=== PATIENT | female | born 1935 | race Caucasian/White ===

== ENCOUNTER 2019-04-16 10:48 | Inpatient (IN) ==
[2019-04-16] MEDS ORDERED: ASPIRIN PO ONE (11:21)
[2019-04-16] MEDS ORDERED: NITROGLYCERIN TOP ONE (11:23)
[2019-04-16] MEDS ORDERED: MORPHINE IV ONE (11:23)
[2019-04-16] MEDS ORDERED: ZOFRAN ODT PO ONE (11:23)
--- NOTE | 2019-04-16 11:44 | Diag Imaging Result Doc PS360 ---
CHEST-2 VIEWS - 04/16/2019 INDICATION: CP COMPARISON: 02/20/2016 FINDINGS: There is cardiomegaly and pulmonary vascular congestion. There are some hazy ill-defined infiltrates in the lung bases bilaterally, nonspecific but likely to be pulmonary edema. There are trace bilateral pleural effusions. IMPRESSION: Cardiomegaly, interstitial pulmonary edema, trace pleural effusions. Electronically signed by Adrián Dudley 04/16/2019 11:41 AM
[2019-04-16] MEDS ORDERED: VASOTEC IV ONE (11:51)
[2019-04-16 12:07] LABS: BASO# 0.04 X1000 (0.0-0.2); BASO% 0.2 % (0.0-0.8); EOS# 0.07 X1000 (0.0-0.7); EOS% 0.4 % (0.0-10.0); HEMOGLOBIN 13.6 g/dL (12.0-16.0); LYMPH# 2.56 X1000 (1.2-3.4); LYMPH% 14.1 % (20.5-51.1); MCH 29.5 PG (27-31); MCHC 31.6 g/dL (33-37); MCV 93.3 FL (81-99); MONO# 2.08 X1000 (0.11-0.59); MONO% 11.5 % (1.7-9.3); NEUT# 13.37 X1000 (1.4-6.5); NEUT% 73.8 % (42.2-75.2); PLT 191 X1000 (130-400); RBC 4.61 XMIL (4.2-5.4); RDW 14.3 % (11.5-14.5); WBC 18.12 X1000 (4.8-10.8)
[2019-04-16 12:12] LABS: INR 0.95; PROTIME 12.7 Seconds (11.0-16.0)
[2019-04-16 12:13] LABS: PTT 24.8 Seconds (22.3-41.8)
[2019-04-16 12:21] LABS: ALB/GLOB RATIO 1.4; ALBUMIN 3.7 g/dL (3.5-5.0); CALCIUM 9.6 mg/dL (8.8-10.2); CREATININE 1.3 mg/dL (0.5-0.9); POTASSIUM 4.4 mmol/L (3.5-5.1); TOTAL BILIRUBIN 0.22 mg/dL (0.20-1.00); TOTAL PROTEIN 6.4 g/dL (6.3-8.3)
[2019-04-16 12:27] LABS: URINE SOURCE CLEAN CATCH
[2019-04-16 12:30] LABS: BILIRUBIN URINE NEGATIVE (NEGATIVE); BLOOD URINE NEGATIVE (NEGATIVE); COLOR YELLOW; GLUCOSE URINE 200 mg/dL (NEGATIVE); KETONE URINE NEGATIVE (NEGATIVE); LEUKOCYTES URINE NEGATIVE (NEGATIVE); NITRITE URINE NEGATIVE (NEGATIVE); PROTEIN URINE >600 mg/dL (NEGATIVE); SP GRAVITY URINE 1.013; TURBIDITY URINE CLEAR (CLEAR); UROBILINOGEN URINE NORMAL (NORMAL)
[2019-04-16 12:31] LABS: UR EPITHELIAL CELLS <10 /HPF (<10); URINE BACTERIA 1+ /HPF; URINE RBC <10 /HPF (<10)
--- NOTE | 2019-04-16 12:52 | EKG Report ---
Test Performed on : 04/16/2019 11:08:52 AM Test Reason : CP Blood Pressure : / mmHG Vent. Rate : 089 BPM Atrial Rate : 089 BPM P-R Int : 200 ms QRS Dur : 096 ms QT Int : 436 ms P-R-T Axes : 087 -18 123 degrees QTc Int : 530 ms Sinus rhythm. with occasional premature ventricular complexes. Left ventricular hypertrophy with repolarization abnormality Anteroseptal infarct (cited on or before 05-SEP-2014) Prolonged QT Abnormal ECG When compared with ECG of 17-MAY-2015 10:56, premature ventricular complexes. are now present Questionable change in initial forces of Anterior leads T wave inversion more evident in Lateral leads Unconfirmed Result
[2019-04-16] MEDS ORDERED: LASIX IV ONE (13:34)
[2019-04-16] MEDS ORDERED: MERREM 1 GM in NS 50 ML IV ONE (13:36)
--- NOTE | 2019-04-16 13:44 | PROVIDER DOCUMENTATION ---
This chart was entered by Susana Ware Scribe, acting as scribe for Alvaro Larson MD. HPI-Respiratory General - General Chief Complaint: Shortness of Breath Stated Complaint: cp, sob x 3 days Time Seen by Provider: 04/16/19 11:05 Source: patient, family, EMS ([facility]) Allergies/Adverse Reactions: Patient Allergies Allergy/AdvReac Type Severity Reaction Status Date / Time atenolol [From Tenormin] Allergy Unknown Verified 02/16/16 08:47 atorvastatin calcium * Allergy Unknown Verified 02/16/16 08:47 [From Lipitor] clarithromycin [From Biaxin] Allergy Unknown Verified 02/16/16 08:47 diltiazem HCl * Allergy Unknown Verified 02/16/16 08:47 [From Cardizem] gabapentin [From Neurontin] Allergy Unknown Verified 02/16/16 08:47 Penicillins Allergy Unknown Verified 02/16/16 08:47 Sulfa (Sulfonamide Allergy Unknown Verified 02/16/16 08:47 Antibiotics) tetanus toxoid, adsorbed Allergy Unknown Verified 02/16/16 08:47 Home Medications: Home Medication List Medication Instructions Recorded Confirmed Last Taken Type Bumetanide 1 mg PO DAILY 09/05/14 02/16/16 02/15/16 History Duloxetine [Cymbalta] 30 mg PO DAILY 09/05/14 02/16/16 02/15/16 History Insulin Detemir [Levemir] 60 unit SQ HS 09/05/14 02/16/16 02/15/16 History Melatonin/Pyridoxine [Melatonin 3 1 each PO HS 09/05/14 02/16/16 02/15/16 H istory mg Tablet] Mineral Oil/Petrolatum,White 3.5 gm OP HS 09/05/14 02/16/16 02/15/16 History [Refresh Lacri-Lube Ointment] Montelukast Sodium [Singulair] 10 mg PO DAILY 09/05/14 02/16/16 02/15/16 History Multivit,Calc,Mins/Iron/Folic 1 each PO DAILY 09/05/14 04/16/19 04/15/19 09:00 History [Thera M Plus Tablet] 1 tab Polyethylene Glycol 3350 [Miralax] 17 gm PO DAILY 03/04/16/19 04/15/19 09:00 History 17 gm Rivastigmine [Exelon 4.6MG/24Hrs] 1 each TD DAILY 09/05/14 04/16/19 04/15/19 09:00 History 4.6 mg TD Trazodone HCl 25 mg PO HS 09/05/14 02/16/16 02/15/16 History Clonidine [Catapres] 0.1 mg PO BID 05/17/15 02/16/16 02/15/16 History Hydralazine [Apresoline] 50 mg PO 4XDAY 05/17/15 02/16/16 02/16/16 History Insulin Regular, Human [Novolin R] 0 - 10 unit SQ DIRECTED 05/17/15 02/16/16 02/15/16 History Metoprolol Succinate E.r. [Toprol 50 mg PO BID 05/17/15 02/16/16 02/15/16 History Xl] Bumetanide 0.5 mg PO DAILY 02/16/16 02/16/16 02/15/16 12:00 History Buspirone HCl 5 mg PO BID 02/16/16 02/16/16 02/15/16 History Cyclobenzaprine [Flexeril] 10 mg PO QHS 02/16/16 02/16/16 02/15/16 History Losartan Potassium 100 mg PO DAILY 02/16/16 02/16/16 02/15/16 History Polyvinyl Alcohol Eye Drops 1 drop BOTH EYES TID 02/16/16 02/16/16 02/15/16 History [Tearisol Oph Solution] Ranitidine [Zantac] 150 mg PO BID 02/16/16 02/16/16 02/15/16 History Amlodipine [Norvasc] 5 mg PO DAILY #60 tablet 02/20/16 Unknown Rx Hydrocodone/APAP 10 mg/325 mg 0.5 - 1 each PO Q4-6H PRN PRN #20 02/20/16 Unknown Rx [[place]-10] tablet Rivaroxaban [Xarelto] 10 mg PO DAILY@0600 #10 tablet 02/20/16 Unknown Rx Aspirin 325 mg PO DAILY 04/16/19 04/16/19 04/15/19 09:00 History 325 mg Furosemide 40 mg PO DAILY 04/16/19 04/16/1919 09:00 History 40 mg Levothyroxine [Synthroid] 25 microgm PO DAILY 04/16/19 04/16/19 04/16/19 05:00 History 25 mcg Linaclotide [Linzess] 72 mcg PO DAILY 04/16/19 04/16/19 04/16/19 06:00 History 72 mcg Multivitamin,Therapeutic [Thera] 1 tab PO DAILY 04/16/19 04/16/19 Unknown History Pantoprazole [Protonix] 40 mg PO DAILY 04/16/19 04/16/19 04/16/19 05:00 History 40 mg Sennosides/Docusate Sodium 2 tab PO DAILY 04/16/19 04/16/19 04/16/19 09:00 H istory [Senna-Docusate Sodium Tablet] 2 tab - History of Present Illness-Resp Nature of Presenting Problem: 84 yowf presents to the ed via ems ([facility]) with c/o SOB, CP acute onset last night. pt this morning when nurse checked on pt she had elevated BP and n/vx1. pt was sent to ed for work up. [t was treated for PNA 1.5months earlier at facility. pt on exam is nontoxic in appearance and appears to be in no distress. family is at bedside with pt and sts has had hx with hiatal hernia CHF and COPD in past Quality of Pain: reports: tightness Severity in ED: reports: mild Onset/Duration: reports: last night Timing: reports: improving, intermittent Exposure: reports: unknown cause Cough Quality/Degree: reports: no cough Episode Frequency: occasional episodes Current Respiratory Medication Therapy: Initiated see nurses note Modifying Factors: improves with: nothing Associated Symptoms: reports: chest pain/soreness, shortness of breath. denies: dizziness, fever/chills, headache, lightheadedness, wheezing Similar Symptoms Previously?: Yes Recently seen or treated by another doctor?: Yes (has seen SNF today and recently in past) Review of Systems - Adult - REVIEW OF SYSTEMS - ADULT Constitutional: denies: chills, fever Eyes: reports: no symptoms reported Ears, Nose, Mouth & Throat: reports: no symptoms reported Cardiovascular: reports: see HPI, chest pain, heart murmur. denies: palpitations, syncope Respiratory: reports: see HPI, shortness of breath. denies: cough, wheezing Gastrointestinal: reports: see HPI, abdominal pain, nausea, vomiting Genitourinary: reports: no symptoms reported Musculoskeletal: reports: no symptoms reported Integumentary: reports: no symptoms reported Neurological: denies: dizziness/vertigo, headache/migraines Psychiatric: reports: no symptoms reported Endocrine: reports: no symptoms reported Hematologic/Lymphatic: reports: no symptoms reported Allergic/Immunologic: reports: no symptoms reported All Other Systems: Reviewed and Negative Past History - Adult - PAST MEDICAL HISTORY-ADULT Review of Records: reports: Old Records Reviewed, Nursing Assessment Review, Medications Reviewed, Social history reviewed & non-contributory. Major Childhood Illnesses: reports: denies history Cardiovascular: reports: angina, CAD, HTN, murmur Respiratory: reports: COPD, pneumonia Gastrointestinal: reports: GERD, other (hernia) Obstetrical/Gynecological: reports: denies history Genitourinary: reports: denies history Musculoskeletal: reports: arthritis, chronic pain (low back pain), other (neuropathy; Macular Degeneration) Neurological: reports: dementia (mild) Endocrine/Immune: reports: Diabetes Diabetes Type: Type 2 Other Conditions: reports: denies history - PRIOR SURGERIES/PROCEDURES Surgical/Procedure History: reports: cholecystectomy, hysterectomy, orthopedic (extremity) (knee Sx), other (throat Sx) - IMMUNIZATION STATUS Childhood Immunizations: See Nurse Assessment Flu Vaccine: UTD - FAMILY HISTORY Family History: reviewed, not pertinent - SOCIAL HISTORY Smoking: non-smoker Substance Use: alcohol Alcohol Use Frequency: occasionally Number of drinks per typical drinking period:: 1 drink Living Situation: care facility ([facility]) Physical Exam-General - PHYSICAL EXAM-ADULT Initial Vital Signs Reviewed: Yes (noted BP-223/85) - CONSTITUTIONAL General Appearance: appears well, alert, mild distress, obese - EYES Eyes: PERRL/EOMI, pink conjunctivae - HEAD, EARS, NOSE, MOUTH & THROAT HENMT: moist mucous membranes - NECK Neck: non-tender, full range of motion, supple, normal inspection - RESPIRATORY Respiratory: chest non-tender, no respiratory distress, crackles (builateral at bases) - CARDIOVASCULAR Cardiovascular: normal peripheral pulses, systolic murmur, extra beats - GASTROINTESTINAL (ABDOMEN) Abdominal Exam: normal bowel sounds, soft, tenderness (RLQ with palpation), hernia - LYMPHATIC Lymphatic: no adenopathy - MUSCULOSKELETAL Back Exam: normal inspection, no CVA tenderness, no vertebral tenderness Extremity: normal inspection, normal capillary refill, pelvis stable - SKIN Integumentary: normal color, normal turgor, warm/dry - NEUROLOGIC Neurologic: grossly normal - PSYCHIATRIC Psych/Mental Status: normal mood/affect, normal thought content, normal thought process, oriented x 3 - HEART Score HEART Score: History: Slightly Suspicious HEART Score: ECG: Non-Specific Repolarization Disturbance/LBBB/PM HEART Score: Age: > or = 65 Years HEART Score: Risk Factors for Atherosclerotic Disease: 1 or 2 Risk Factors HEART Score: Troponin: < or = Normal Limit Total HEART Score:: 4 Progress - PLAN OF CARE/RESULTS Progress/Plan/Lab Results: Vital Signs - 8 hr 04/16/19 11:00 04/16/19 11:01 04/16/19 11:09 Temperature 99.6 F Pulse Rate 86 Respiratory Rate 19 Blood Pressure 223/85 223/85 O2 Sat by Pulse Oximetry 95 94 L 98 04/16/19 11:15 04/16/19 11:37 04/16/19 11:45 Temperature Pulse Rate 93 H 91 H 86 Respiratory Rate 21 21 25 H Blood Pressure O2 Sat by Pulse Oximetry 98 97 97 04/16/19 11:48 04/16/19 12:00 04/16/19 12:01 Temperature Pulse Rate 88 86 87 Respiratory Rate 22 21 22 Blood Pressure 226/89 211/85 O2 Sat by Pulse Oximetry 97 97 97 04/16/19 12:10 04/16/19 12:15 04/16/19 12:21 Temperature Pulse Rate 83 85 82 Respiratory Rate 24 20 20 Blood Pressure 223/78 204/78 O2 Sat by Pulse Oximetry 98 98 98 04/16/19 12:30 04/16/19 12:31 Temperature Pulse Rate 82 85 Respiratory Rate 18 21 Blood Pressure 201/77 O2 Sat by Pulse Oximetry 96 96 Laboratory Results - last 24 hr 04/16/19 04/16/19 04/16/19 11:50 11:50 11:50 WBC 18.12 H RBC 4.61 Hgb 13.6 Hct 43.0 MCV 93.3 MCH 29.5 MCHC 31.6 L RDW Std Deviation 14.3 Plt Count 191 MPV Not Reportable Neut % (Auto) 73.8 Lymph % (Auto) 14.1 L Hopkins % (Auto) 11.5 H Eos % (Auto) 0.4 Baso % (Auto) 0.2 Neut # (Auto) 13.37 H Lymph # (Auto) 2.56 Hopkins # (Auto) 2.08 H Eos # (Auto) 0.07 Baso # (Auto) 0.04 PT INR PTT (Actin FS) D-Dimer, Quantitative Sodium 142 Potassium 4.4 Chloride 97 L Carbon Dioxide 28 Anion Gap 17 BUN 21 Creatinine 1.3 H Estimated GFR/1.73 m2 39 BUN/Creatinine Ratio 16 Glucose 363 H Calculated Osmolality 301 Calcium 9.6 Total Bilirubin 0.22 AST 23 ALT 16 Alkaline Phosphatase 138 H Creatine Kinase 34 Troponin T Gpj-[id number]-Vdwafnrjeou Pept 2036 H Total Protein 6.4 Albumin 3.7 Globulin 2.7 Albumin/Globulin Ratio 1.4 Lipase Urine Source Urine Color Urine Turbidity Urine pH Ur Specific Pearl Urine Protein Ur Glucose (Stick) Ur Ketones (Stick) Urine Blood Urine Nitrite Urine Bilirubin Urobilinogen Dipstick Urine Leukocytes Urine WBC (Auto) Urine RBC (Auto) U Epithel Cells (Auto) Urine Bacteria (Auto) 04/16/19 04/16/19 04/16/19 11:50 11:50 11:50 WBC RBC Hgb Hct MCV MCH MCHC RDW Std Deviation Plt Count MPV Neut % (Auto) Lymph % (Auto) Hopkins % (Auto) Eos % (Auto) Baso % (Auto) Neut # (Auto) Lymph # (Auto) Hopkins # (Auto) Eos # (Auto) Baso # (Auto) PT 12.7 INR 0.95 PTT (Actin FS) 24.8 D-Dimer, Quantitative 0.76 H Sodium Potassium Chloride Carbon Dioxide Anion Gap BUN Creatinine Estimated GFR/1.73 m2 BUN/Creatinine Ratio Glucose Calculated Osmolality Calcium Total Bilirubin AST ALT Alkaline Phosphatase Creatine Kinase Troponin T < 0.010 Pnj-[id number]-Izsjdvqtjhg Pept Total Protein Albumin Globulin Albumin/Globulin Ratio Lipase 19 Urine Source Urine Color Urine Turbidity Urine pH Ur Specific Pearl Urine Protein Ur Glucose (Stick) Ur Ketones (Stick) Urine Blood Urine Nitrite Urine Bilirubin Urobilinogen Dipstick Urine Leukocytes Urine WBC (Auto) Urine RBC (Auto) U Epithel Cells (Auto) Urine Bacteria (Auto) 04/16/19 12:09 WBC RBC Hgb Hct MCV MCH MCHC RDW Std Deviation Plt Count MPV Neut % (Auto) Lymph % (Auto) Hopkins % (Auto) Eos % (Auto) Baso % (Auto) Neut # (Auto) Lymph # (Auto) [place] # (Auto) Eos # (Auto) Baso # (Auto) PT INR PTT (Actin FS) D-Dimer, Quantitative Sodium Potassium Chloride Carbon Dioxide Anion Gap BUN Creatinine Estimated GFR/1.73 m2 BUN/Creatinine Ratio Glucose Calculated Osmolality Calcium Total Bilirubin AST ALT Alkaline Phosphatase Creatine Kinase Troponin T Byk-Y-Aayuefgulcj Pept Total Protein Albumin Globulin Albumin/Globulin Ratio Lipase Urine Source CLEAN CATCH Urine Color YELLOW Urine Turbidity CLEAR Urine pH 7.0 Ur Specific Pearl 1.013 Urine Protein >600 A Ur Glucose (Stick) 200 A Ur Ketones (Stick) NEGATIVE Urine Blood NEGATIVE Urine Nitrite NEGATIVE Urine Bilirubin NEGATIVE Urobilinogen Dipstick NORMAL Urine Leukocytes NEGATIVE Urine WBC (Auto) 10-20 A Urine RBC (Auto) <10 U Epithel Cells (Auto) <10 Urine Bacteria (Auto) 1+ Orders Category Date Time Status Cardiac Monitoring DIRECTED Care 04/16/19 11:21 Active Hernandez Cath Insertion ORDERED Care 04/16/19 13:37 Active Oxygen Therapy- ED Nursing DIRECTED Care 04/16/19 11:21 Active Saline Loc NOW Care 04/16/19 11:21 Active CHEST-2 VIEWS [RAD] Stat Exams 04/16/19 11:21 Completed BLOOD CULTURE [BLDCUL] Stat Lab 04/16/19 13:37 Ordered CBC WITH ELECTRONIC DIFF [HEME] Stat Lab 04/16/19 11:50 Completed CK PROFILE [SP CHEM] Stat Lab 04/16/19 11:50 Completed COMPREHENSIVE METABOLIC PANEL [CHEM] Stat Lab 04/16/19 11:50 Completed D-DIMER [COAG] Stat Lab 04/16/19 11:50 Completed LACTATE, PLASMA [CHEM] Stat Lab 04/16/19 13:37 Uncollected LIPASE [CHEM] Stat Lab 04/16/19 11:50 Completed PRO B-NATRIURETIC PEPTIDE Stat Lab 04/16/19 11:50 Completed PROTIME WITH INR [COAG] Stat Lab 04/16/19 11:50 Completed PTT [COAG] Stat Lab 04/16/19 11:50 Completed TROPONIN T Stat Lab 04/16/19 11:50 Completed URINALYSIS W/POSS RFLX CULT [URINALYSIS] Stat Lab 04/16/19 12:09 Completed URINE CULTURE [RM] Routine Lab 04/16/19 12:36 Received Aspirin Med 04/16/19 11:21 Discontinued 325 mg PO NOW ONE Enalaprilat [Vasotec] Med 04/16/19 11:51 Discontinued 1.25 mg IV NOW ONE Furosemide [Lasix] Med 04/16/19 13:34 Discontinued 80 mg IV NOW ONE Meropenem [Merrem] 1 gm Med 04/16/19 13:36 Active 0.9% Sodium Chloride Inj [Ns] 50 ml IV NOW Morphine Med 04/16/19 11:23 Discontinued 2 mg IV NOW ONE Nitroglycerin Med 04/16/19 11:23 Discontinued 1 inch TOP NOW ONE Ondansetron Odt [Zofran Odt] Med 04/16/19 11:23 Discontinued 4 mg PO NOW ONE CP/SOB/Palp >45 yrs of Age Stat Oth 04/16/19 11:21 Ordered EKG [EKG] Stat Ther 04/16/19 11:21 Draft Result Diagrams: 04/16/19 11:50 04/16/19 11:50 - REASSESSMENT Reassessment #1 Time Reassessed: 11:29 Status: improving (sx have improved since being in ED) Reassessment #2 Time Reassessed: 13:35 Status: unchanged (dr larson at bedside speaking with pt and family about poc. Has UTI from [place], and is septic, so will treat with Merrem. She received 1 fluid bolus, and is hypertensive with CHF and pulmonary edema, so will also need lasix. Will wait for lactic acid level to see how much fluids she needs.) Reassessment Comment: Patient meets sepsis criteria (increased RR and leukocytosis). - EKG 1 Time of EKG reading by physician:: 11:08 EKG Read and Signed by:: Alvaro Larson EKG Interpretation (*Must complete 3 of following elements*): Abnormal Rate: 89 Rhythm: nsr [place]: normal QRS: LVH ( with repolarization abnormality), PVC's RI Interval: normal ST Wave: normal Prior EKG Comparison: unchanged from prior (minmal changes since 05/17/18) Comments: prolonged QT /anteroseptal infarct, age undetermiend - XRAY 1 XRAY: Bilateral XRAY Study: Chest Impression: See EMR Report (CHEST-2 VIEWS - 04/16/2019 INDICATION: CP COMPARISON: 02/20/2016 FINDINGS: There is cardiomegaly and pulmonary vascular congestion. There are some hazy ill-defined infiltrates in the lung bases b ilaterally, nonspecific but likely to be pulmonary edema. There are trace bilateral pleural effusions. IMPRESSION: Cardiomegaly, interstitial pulmonary edema, trace pleural effusions. Electronically signed by Adrián Dudley 04/16/2019 11:41 AM 04/16/19 1141 Interpreting Physician: Adrián Dudley MD Dictated Date/Time: 04/16/19 1139 cc: Alvaro Larson MD; Angella Stephens MD) - CONSULTS/PCP/HOSPITALIST Notification #1 *Consult/PCP/Hospitalist*: hospitalist Time Discussed: 13:42 (Lashon, admit to Dr. Jackson, order V/Q) Consult Disposition: Admit Departure - Departure Date of Disposition Decision: 04/16/19 Time of Disposition Decision: 13:42 DIAGNOSIS: Dyspnea and respiratory abnormalities, Acute pulmonary edema with congestive heart failure, Hypertensive urgency, Bacterial UTI Sepsis Qualifiers: Sepsis type: sepsis due to unspecified organism Sepsis acute organ dysfunction status: without acute organ dysfunction Qualified Code(s): A41.9 - Sepsis, unspecified organism Disposition: ADMITTED INPATIENT 09 Certified Medical Emergency: Emergent Condition: Fair Referrals and Follow-Ups: Angella Stephens MD [Primary Care Provider] - - Critical Care Note This patient required my direct & personal management of CC.: Yes Total Time (mins): 45 Critical Care Statement: This patient required my direct personal management to treat or rule out processes, the absence of which, could potentiallly result in sudden, clinically significant life or limb threatening deterioration. Attestation - Physician/ SARAHY Attestation Patient care was provided by Advanced Practice Provider:: No The physician spent face to face time with patient:: Yes Advanced Practice Provider documentation review:: Supervising physician onsite and consulted in the evaluation and care of this patient. The physician did have a face to face encounter with the patient. This chart was documented by the indicated scribe, (Susana Ware Scribe) and accurately reflects the services I performed and decisions made by me, Alvaro Larson MD, as attested by the provider's signature.
[2019-04-16] MEDS ORDERED: ZOFRAN IV PRN (14:07)
[2019-04-16] MEDS ORDERED: APRESOLINE IV PRN (14:07)
[2019-04-16] MEDS: LASIX IV SCH ×2 (14:07→17:52)
[2019-04-16 14:44] LABS: HEMOGLOBIN A1C 8.1 % (4.8-6.0)
[2019-04-16 15:04] LABS: FREE T4 1.32 ng/dL (0.93-1.70); TSH 2.19 uIUmL (0.27-4.20)
--- NOTE | 2019-04-16 15:14 | Diag Imaging Result Doc PS360 ---
EXAM: LUNG SCAN / VQ INDICATION: Dyspnea, elevated creat TECHNIQUE: 39.7 mCi of aerosolized technetium 99 DTPA was administered for the ventilation portion of the scan. 5.9 mCi of IV technetium 99 MAA was administered for the perfusion portion of the scan. COMPARISON: 05/17/2015 FINDINGS: There is a matched perfusion defect involving the medial segment of the right middle lobe. This is stable, however. No unmatched perfusion defects are identified. There is some condensation of radiotracer in the central bronchi on the ventilation portion of the scan. The ventilation portion of the scan is unremarkable, otherwise. IMPRESSION: Low probability of pulmonary embolism. Electronically signed by Cash Vasques 04/16/2019 3:11 PM
--- NOTE | 2019-04-16 16:42 | ECHO REPORT ---
ORDER DATE: 04/16/2019 INDICATION: Dyspnea, history of CHF, chest pain, murmur. FINDINGS: 1. The right atrium appears normal in size. 2. Trace tricuspid regurgitation. Insufficient data to estimate the RV systolic pressure. 3. Normal RV size and systolic function. 4. No significant pulmonic insufficiency. 5. Suggestion of borderline moderate left atrial enlargement with a volume index of 34. 6. No mitral prolapse. Mild mitral regurgitation. 7. Normal LV size. End-diastolic dimension is 4.1 cm. Severe left ventricular hypertrophy. In the mid left ventricular cavity the intraventricular septal wall thickness is 1.7 cm. Towards the base of the septum and it is upwards of 2 cm. There is no evidence of left ventricular outflow tract gradient. Normal LV systolic function. The estimated EF is 65 to 70% with normal wall motion. 8. Aortic valve opens well. It is trileaflet. No evidence of stenosis or insufficiency. 9. Aorta appears normal in visualized segments. 10. No pericardial effusion seen. cc: MD Lashon Mina CRNP
[2019-04-16] MEDS ORDERED: INSTA-GLUCOSE PO PRN (16:46)
[2019-04-16] MEDS ORDERED: TYLENOL PO PRN (16:46)
[2019-04-16] MEDS: HUMALOG SUBQ SCH ×2 (16:56→20:59)
[2019-04-16] MEDS: APRESOLINE PO SCH ×2 (17:52→20:59)
--- NOTE | 2019-04-16 20:37 | HISTORY AND PHYSICAL ---
PRIMARY CARE PHYSICIAN: Angella Stephens MD CHIEF COMPLAINT: Shortness of breath over the past 3 days that progressively worsened overnight. HISTORY OF PRESENTING ILLNESS: This is an 84-year-old female who presents to [facility], via EMS from [facility] with some chest pain and shortness of breath over the past 3 days that worsened overnight. When she arrived to the emergency room, her blood pressure was 223/85. She had an O2 saturation of 95% on 3 L via nasal cannula. Chest x-ray revealed pulmonary edema and trace pleural effusions. She had a D-dimer that was mildly elevated at 0.76. Her white blood cell count is 18.12, but she is noted to have a history of CLL, so we are going to admit her to the medical unit for further evaluation and treatment. PAST MEDICAL HISTORY: COPD, diabetes type 2, dementia, CHF, hypertension, hyperlipidemia and CLL. PAST SURGICAL HISTORY: Hysterectomy, cholecystectomy, left knee surgery and a throat surgery. FAMILY HISTORY: Mother and father both had heart disease. SOCIAL HISTORY: She currently lives at [facility]. Denies any tobacco, alcohol or illicit drug use. ALLERGIES: Tenormin, Lipitor, Biaxin, Cardizem, Neurontin, penicillin, sulfa and tetanus. HOME MEDICATIONS: A current list will be obtained, reconciled, reviewed and restarted as appropriate. We will place an order for nursing to update and confirm home medications. LABORATORY DATA: White blood cell count of 8.12, hemoglobin 13.6, hematocrit 43, platelets 191,000. PT and INR of 12.7 and 0.95. D-dimer of 0.76. Sodium of 142, potassium 4.4, chloride 97, CO2 is 28, BUN of 21, creatinine 1.3, glucose 363. Hemoglobin A1c was 8.1. Cardiac enzymes were negative. Troponin of 2036. B12 of 757. TSH of 2.19 with a free T4 of 1.32. Urinalysis showed negative nitrites, negative leukocytes and 1+ bacteria. DIAGNOSTIC DATA: Chest x-ray showed cardiomegaly, interstitial pulmonary edema and trace pleural effusions. EKG showed sinus rhythm with occasional PVCs at 89. REVIEW OF SYSTEMS: She denied any fever, chills, blurred vision or dizziness. She did have some mild chest pain and shortness of breath. Denied any cough. Denied any abdominal pain, nausea, vomiting, constipation, diarrhea, burning or hurting with urination. PHYSICAL EXAMINATION: VITAL SIGNS: On arrival she had a temperature of 99.6 degrees, pulse 86, respirations 19, blood pressure 223/85, saturating 95% on 3 L via nasal cannula. GENERAL: This is an 84-year-old female who is lying in the bed, answers questions appropriately. HEENT: Normocephalic, atraumatic. Normal ENT inspection. Oropharynx and nares are clear. Eyes: Pupils are equal, round and reactive to light and accommodation. Extraocular movements are intact. NECK: Normal inspection. Normal range of motion. LUNGS: Clear to auscultation bilaterally with equal lung expansion and chest wall movement. HEART: Regular rate and rhythm. No murmurs, rubs or gallops. ABDOMEN: Soft, nontender, nondistended. Bowel sounds are present x4 quadrants. MUSCULOSKELETAL: She had 5/5 strength. She did have 2 to 3+ pitting edema in bilateral lower extremities. NEUROLOGICAL: The cranial nerves 2-12 appear grossly intact. ASSESSMENT: 1. Acute congestive heart failure exacerbation. 2. Elevated D-dimer. 3. Hypertension, uncontrolled. 4. Diabetes type 2 with hyperglycemia. PLAN: She will be admitted to the medical unit, placed on telemetry, O2 per protocol. We will place an indwelling Hernandez catheter. Place SCDs for DVT prophylaxis. Place on a diabetic diet. Echocardiogram. We will check bilateral lower extremity venous Doppler. We will do a lung VQ scan; unable to do the CTA of pulmonary arteries due to her creatinine being bumped up at 1.3. Lasix 40 mg IV q.12; hydralazine 10 mg IV q.4 hours p.r.n. for systolic greater than 190, diastolic greater than 100. We will do pattern blood sugars with sliding scale insulin. Recheck CBC and BMP in the a.m. Further orders after seen by attending. Dictated by DUC Meredith for Guilherme Jackson MD cc: DUC Meredith MD Angela L. Clifton
[2019-04-16] MEDS: BUSPAR PO SCH (20:58)
[2019-04-16] MEDS: MELATONIN PO SCH (20:58)
[2019-04-16] MEDS: DESYREL PO SCH (20:59)
[2019-04-16] MEDS: LEVEMIR SUBQ SCH (21:09)
--- NOTE | 2019-04-16 21:12 | HISTORY AND PHYSICAL ---
HISTORY OF PRESENT ILLNESS: This is an 84-year-old who was at [facility] and became more short of breath, developed some nausea and vomiting I think was associated with her hiatal hernia. Last 3 or 4 days, a lot of nausea vomiting, became short of breath. She noticed some increased swelling in her lower extremities. PAST MEDICAL HISTORY: 1. COPD. 2. Dementia. 3. Diabetes mellitus type 2. 4. Hypertension. 5. Hyperlipidemia. 6. Congestive heart failure. PAST SURGICAL HISTORY: 1. Hysterectomy. 2. Cholecystectomy. 3. Throat surgery. 4. Left knee surgery. MEDICATIONS: A long list of medicines, 23 medicines. She has CLL as well and presented with what appeared to be pulmonary venous hypertension and pulmonary edema. DIAGNOSTIC DATA: V/Q scan was low probability. Had a mild bump in her D-dimer. Her thyroid functions were normal. ProBNP not checked, but troponin was less than 0.01. D-dimer was 0.76, so admitted. ASSESSMENT: 1. Pulmonary hypertension. 2. Hiatal hernia with nausea. 3. History of chronic obstructive pulmonary disease. 4. Diabetes mellitus type 2. Follow sugars. 5. Hypertension. RECOMMENDATIONS: She had high blood pressure when she came in, so I think accelerated hypertension so bring her blood pressure down a little bit and hopefully get better compensation of the left ventricle. Reviewed all her medications. Right now, we just have her on Lasix. We probably can start back her Apresoline 50 mg twice a day. She is taking Linzess for constipation. She is on Toprol-XL 50 mg daily, taking MiraLAX 17 g daily, and Desyrel 100 mg at bedtime. cc: Guilherme Jackson MD
[2019-04-16] MEDS: TYLENOL PO PRN (22:57)
[2019-04-17] MEDS: LASIX IV SCH ×3 (03:12→16:54)
[2019-04-17] MEDS: HUMALOG SUBQ SCH ×4 (06:25→20:46)
[2019-04-17] MEDS: TEARISOL OPH SOLUTION BOTH EYES SCH ×4 (08:20→16:59)
[2019-04-17 08:23] LABS: BASO# 0.05 X1000 (0.0-0.2); BASO% 0.4 % (0.0-0.8); EOS% 1.6 % (0.0-10.0); HEMATOCRIT 40.7 % (37.0-47.0); HEMOGLOBIN 12.3 g/dL (12.0-16.0); IMM GRAN# 0.02 X1000 (0.0-0.04); IMM GRAN% 0.2 % (0.0-0.5); LYMPH# 3.66 X1000 (1.2-3.4); LYMPH% 29.5 % (20.5-51.1); MCH 28.5 PG (27-31); MCHC 30.2 g/dL (33-37); MCV 94.2 FL (81-99); MONO# 1.14 X1000 (0.11-0.59); MONO% 9.2 % (1.7-9.3); NEUT# 7.32 X1000 (1.4-6.5); NEUT% 59.1 % (42.2-75.2); PLT 170 X1000 (130-400); RBC 4.32 XMIL (4.2-5.4); RDW 14.1 % (11.5-14.5); WBC 12.39 X1000 (4.8-10.8)
[2019-04-17] MEDS: LINZESS PO SCH (08:25)
[2019-04-17] MEDS: BUSPAR PO SCH ×3 (08:26→20:45)
[2019-04-17] MEDS: EXELON 4.6MG/24HRS TD SCH (08:26)
[2019-04-17] MEDS: REGLAN PO SCH (08:26)
[2019-04-17] MEDS: CULTURELLE PO SCH (08:26)
[2019-04-17] MEDS: PROTONIX PO SCH (08:26)
[2019-04-17] MEDS: SYNTHROID PO SCH (08:26)
[2019-04-17] MEDS: APRESOLINE PO SCH ×4 (08:27→20:46)
[2019-04-17] MEDS: PERICOLACE PO SCH (08:27)
[2019-04-17] MEDS: COZAAR PO SCH (08:27)
[2019-04-17] MEDS: ASPIRIN PO SCH (08:27)
[2019-04-17] MEDS: THERA M PLUS PO SCH (08:27)
[2019-04-17] MEDS: MIRALAX PO SCH (08:28)
[2019-04-17 08:29] LABS: CREATININE 1.4 mg/dL (0.5-0.9); POTASSIUM 3.9 mmol/L (3.5-5.1)
[2019-04-17 08:46] LABS: EOS 2 % (1-10); LYMPHS 23 % (21-51); MONO 6 % (1-9); SEGS 65 % (42-75)
[2019-04-17 08:47] LABS: HYPOCHROM 1+; LARGE PLATELETS OCCASIONAL
[2019-04-17] MEDS ORDERED: TOPROL XL PO SCH (09:00)
[2019-04-17] MEDS ORDERED: MULTIVITAMIN THERAPEUTIC PO SCH (09:00)
[2019-04-17] MEDS ORDERED: NORCO-10 PO PRN (09:14)
--- NOTE | 2019-04-17 09:25 | Diag Imaging Result Doc PS360 ---
EXAM: CHEST-2 VIEWS HISTORY: chf TECHNIQUE: Two views COMPARISON: 04/16/2019 FINDINGS: The lungs are well expanded. The heart is not enlarged. The vessels are mildly distended. There are no infiltrates. Small pleural effusions. IMPRESSION: Minimal pulmonary edema with small pleural effusions. Electronically signed by Phillip Almeida 04/17/2019 9:22 AM
--- NOTE | 2019-04-17 14:51 | Extremity Venous Study ---
PROCEDURE NAME: Venous U/S Bilateral Legs - 04/16/2019 BILATERAL LOWER EXTREMITY VENOUS ULTRASOUND: Exam for comparison is 05/17/2015. PROGRAM REP: Gabriela. REQUESTING PHYSICIAN: Dr. Larson. INDICATIONS: Elevated D-dimer and swelling. FINDINGS: Deep and superficial veins bilateral lower extremities were visualized along their course. All veins compressible, forward flow. No evidence of intraluminal thrombus. SUMMARY: No deep or superficial venous thrombosis in bilateral lower extremities. cc: MD Lashon Gallagher CRNP
[2019-04-17] MEDS ORDERED: INSULIN PEN NEEDLES ONE (15:04)
[2019-04-17] MEDS ORDERED: LEVAQUIN 250 MG/D5W 250 MG/50 ML IVPB IV SCH (17:00)
--- NOTE | 2019-04-17 17:25 | PROGRESS NOTE ---
DATE: 04/17/2019 SUBJECTIVE: Patient resting in bed. Not in any obvious distress. OBJECTIVE: Vital signs: Temperature 98.6 degrees, pulse 68, respiratory rate 12, blood pressure 208/66, oxygen saturation is 100%. HEENT: Atraumatic, normocephalic. Neck: No jugular venous distention. Cardiovascular: S1, S2. Respiratory: Has evidence of good entry bilaterally. Abdomen: Soft, nontender. No masses felt. Extremities: Trace edema in the lower extremities. Central nervous system: No obvious focal deficit noted. LABORATORY DATA: WBC 12.39, hematocrit is 40.7 with a platelet count of 170,000. Sodium is 140, potassium 3.9, chloride is 95, bicarb is 32, BUN is 27, creatinine 1.4. UA shows about 10-20 WBCs per high-power field. ASSESSMENT AND PLAN: 1. Acute congestive heart failure. Maintain patient on diuretics. Monitor intakes and outputs. Follow up on 2D echo of the heart. 2. Hypertension. Optimize blood pressure control using oral as well as parenteral agent. 3. Diabetes mellitus. Continue blood sugar monitoring as well as sliding scale insulin. 4. Renal insufficiency, probably acute. Maintain patient on intravenous fluids. Follow up on renal function. 5. Pyuria. Check urine culture. 6. Deep vein thrombosis prophylaxis. Sequential compression devices. 7. Gastrointestinal prophylaxis. Proton pump inhibitor. cc: Juan Hoffman MD MTDD
[2019-04-17] MEDS ORDERED: CALMOSEPTINE OINTMENT TOP PRN (17:36)
[2019-04-17] MEDS ORDERED: TOPROL XL PO ONE (18:30)
[2019-04-17] MEDS: LEVEMIR SUBQ SCH (20:45)
[2019-04-17] MEDS: MELATONIN PO SCH (20:45)
[2019-04-17] MEDS: DESYREL PO SCH (20:45)
[2019-04-17] MEDS: TYLENOL PO PRN (23:24)
[2019-04-18] MEDS: LASIX IV SCH ×2 (05:53→17:19)
[2019-04-18] MEDS: HUMALOG SUBQ SCH ×4 (06:42→20:49)
[2019-04-18] MEDS: BUSPAR PO SCH ×3 (08:07→20:49)
[2019-04-18] MEDS: ASPIRIN PO SCH (08:07)
[2019-04-18] MEDS: PROTONIX PO SCH (08:07)
[2019-04-18] MEDS: COZAAR PO SCH (08:07)
[2019-04-18] MEDS: APRESOLINE PO SCH ×4 (08:07→20:49)
[2019-04-18] MEDS: REGLAN PO SCH (08:07)
[2019-04-18] MEDS: CULTURELLE PO SCH (08:08)
[2019-04-18] MEDS: THERA M PLUS PO SCH (08:08)
[2019-04-18] MEDS: TOPROL XL PO SCH (08:08)
[2019-04-18] MEDS: PERICOLACE PO SCH (08:08)
[2019-04-18] MEDS: EXELON 4.6MG/24HRS TD SCH (08:08)
[2019-04-18] MEDS: SYNTHROID PO SCH (08:08)
[2019-04-18] MEDS: MIRALAX PO SCH ×2 (08:09→08:14)
[2019-04-18] MEDS: TEARISOL OPH SOLUTION BOTH EYES SCH ×3 (08:09→17:20)
[2019-04-18] MEDS ORDERED: PERCOCET-5 PO PRN (08:28)
[2019-04-18] MEDS: LINZESS PO SCH (09:00)
[2019-04-18] MEDS: ROCEPHIN 1 GM in NS 50 ML IV SCH (11:43)
--- NOTE | 2019-04-18 12:32 | PROGRESS NOTE ---
DATE: 04/18/2019 SUBJECTIVE: Patient notes that she is feeling okay. Denies any fevers. She states her cough is okay. PHYSICAL EXAMINATION: Vital Signs: Reviewed and stable. She is awake. She is alert. She is in no current respiratory distress. Pleasant to talk with. HEENT: Normocephalic. Neck: Supple. Cardiovascular: Regular rate. Lungs: Chest with positive rhonchi. No crackles. No wheezing. Good air movement. Abdomen: Soft and obese. Extremities: Moves all extremities. Neurologic: No changes. ASSESSMENT: 1. Urinary tract infection with Proteus resistant to Levaquin. We are going to change to Rocephin. She does have a penicillin allergy, but only had a rash. 2. Congestive heart failure with mild exacerbation. 3. Diabetes. 4. Chronic renal failure, stable. PLAN: We are going to continue patient in the hospital. Change her antibiotics to Rocephin, and will follow. Hopefully, she can transition to rehab on Saturday. cc: Easton Mancuso MD
[2019-04-18] MEDS: LEVEMIR SUBQ SCH (20:49)
[2019-04-18] MEDS: DESYREL PO SCH (20:49)
[2019-04-18] MEDS: MELATONIN PO SCH (20:49)
[2019-04-18] MEDS: TYLENOL PO PRN (20:56)
[2019-04-19] MEDS: LASIX IV SCH ×2 (04:47→16:52)
[2019-04-19] MEDS: HUMALOG SUBQ SCH ×4 (06:22→20:16)
[2019-04-19] MEDS: MIRALAX PO SCH (08:35)
[2019-04-19] MEDS: EXELON 4.6MG/24HRS TD SCH (08:37)
[2019-04-19] MEDS: PERICOLACE PO SCH (08:38)
[2019-04-19] MEDS: BUSPAR PO SCH ×3 (08:38→20:14)
[2019-04-19] MEDS: REGLAN PO SCH ×4 (08:38→20:15)
[2019-04-19] MEDS: SYNTHROID PO SCH (08:38)
[2019-04-19] MEDS: CULTURELLE PO SCH (08:38)
[2019-04-19] MEDS: TOPROL XL PO SCH (08:39)
[2019-04-19] MEDS: PROTONIX PO SCH (08:39)
[2019-04-19] MEDS: LINZESS PO SCH (08:39)
[2019-04-19] MEDS: COZAAR PO SCH (08:39)
[2019-04-19] MEDS: ASPIRIN PO SCH (08:39)
[2019-04-19] MEDS: APRESOLINE PO SCH ×4 (08:39→20:15)
[2019-04-19] MEDS: TEARISOL OPH SOLUTION BOTH EYES SCH ×3 (08:39→16:53)
[2019-04-19] MEDS: THERA M PLUS PO SCH (08:39)
--- NOTE | 2019-04-19 10:16 | PROGRESS NOTE ---
DATE: 04/19/2019 SUBJECTIVE: She is followed by Angella Stephens. An 84-year-old female presented to [facility] from [facility], had some chest pain, shortness of breath for 3 days, worsened overnight, arrived to the emergency room. Blood pressure was 223/85, O2 saturations were 95% on 3 L. Chest x-ray showed some pulmonary edema, trace pleural effusions. She had a D-dimer mildly elevated at 0.76. White blood cell count was elevated at 18,120, and she does have a history of CLL, so admitted for further evaluation. She had a lung V/Q scan that showed low probability of pulmonary thromboemboli. Echocardiogram done on 04/16/2019 showed normal right ventricular size, trace tricuspid regurgitation, mild mitral regurgitation, normal left ventricular size, ejection fraction estimated at 65% to 70%. There is no evidence of any aortic valve outflow significant gradient. Chest x-ray from 04/17/2019 showed minimal pulmonary edema, small pleural effusions. She states she still does not feel very good. She had been mainly complaining of nausea. She thinks it is her hiatal hernia. OBJECTIVE: Vital Signs: Temperature 98.7 degrees, pulse 72, respirations 18, blood pressure 186/67. HEENT: Pupils are equal and round. Lungs: Clear in all lung nayak. Cardiovascular: Regular rhythm and rate without murmur or S3. Abdomen: Soft. Skin: Warm and dry. ASSESSMENT AND PLAN: 1. Urinary tract infection, Proteus, resistant to Levaquin, so changed her to Rocephin. 2. Congestive heart failure with pulmonary venous hypertension, mild exacerbation. Seems to be improving. Her breathing seems to be comfortable. 3. Diabetes mellitus type 2. Continue to follow pattern sugars, sliding scale. 4. Chronic kidney disease. Her sugars have come down. Her last creatinine was 1.4. REVIEW OF ORDERS: She is on trazodone 100 mg at bedtime, aspirin 325 mg a day, BuSpar 7.5 mg I believe she is taking that 3 times a day, Lasix 40 mg IV every 12 hours, she is getting hydralazine 50 mg p.o. 4 times a day, she is on insulin Detemir 46 mg subcutaneously at bedtime, she is on her Synthroid 25 mcg a day, Linzess 72 mcg p.o. daily, Cozaar 50 mg a day, metoprolol 100 mg p.o. daily, she is getting oxycodone 5 mg 1-1/2 tablets every 6 hours p.r.n., MiraLAX 17 grams daily, Exelon takes 1 daily, she is getting ceftriaxone 1 gram IV every 24 hours, and sennoside docusate 2 tablets daily. I guess we will get a flat and upright, recheck her electrolytes and CBC in the morning, look and see if she is constipated. cc: Guilherme Jackson MD
[2019-04-19] MEDS: ROCEPHIN 1 GM in NS 50 ML IV SCH (10:53)
[2019-04-19] MEDS ORDERED: NS 50 ML ONE (11:00)
--- NOTE | 2019-04-19 11:36 | Diag Imaging Result Doc PS360 ---
EXAM: KUB ABDOMEN 04/19/2019 HISTORY: nausea, constipation? TECHNIQUE: KUB COMMENT: There is gas in the right colon. There is stool in the rectum. The stomach and small bowel are not distended. There has been previous cholecystectomy. No evidence of organomegaly or mass is present. There are no previous studies. There is extensive calcification of the abdominal aorta. IMPRESSION: Nonspecific abdomen. Mild if any constipation. Electronically signed by Nirmal Zambrano 04/19/2019 11:34 AM
[2019-04-19] MEDS: MELATONIN PO SCH (20:14)
[2019-04-19] MEDS: DESYREL PO SCH (20:15)
[2019-04-19] MEDS: LEVEMIR SUBQ SCH (20:15)
[2019-04-19] MEDS: TYLENOL PO PRN (20:18)
[2019-04-20] MEDS: REGLAN PO SCH ×3 (02:32→14:42)
[2019-04-20] MEDS: TYLENOL PO PRN (03:16)
[2019-04-20] MEDS: LASIX IV SCH (04:44)
[2019-04-20] MEDS: HUMALOG SUBQ SCH ×2 (06:14→12:26)
[2019-04-20 07:38] LABS: BASO# 0.05 X1000 (0.0-0.2); BASO% 0.4 % (0.0-0.8); EOS# 0.33 X1000 (0.0-0.7); EOS% 2.4 % (0.0-10.0); HEMATOCRIT 41.6 % (37.0-47.0); HEMOGLOBIN 12.8 g/dL (12.0-16.0); IMM GRAN# 0.04 X1000 (0.0-0.04); IMM GRAN% 0.3 % (0.0-0.5); LYMPH# 3.86 X1000 (1.2-3.4); LYMPH% 27.9 % (20.5-51.1); MCHC 30.8 g/dL (33-37); MCV 94.1 FL (81-99); MONO# 1.29 X1000 (0.11-0.59); MONO% 9.3 % (1.7-9.3); NEUT# 8.25 X1000 (1.4-6.5); NEUT% 59.7 % (42.2-75.2); PLT 199 X1000 (130-400); RBC 4.42 XMIL (4.2-5.4); RDW 13.6 % (11.5-14.5); WBC 13.82 X1000 (4.8-10.8)
[2019-04-20 08:05] LABS: ALB/GLOB RATIO 1.1; ALBUMIN 3.3 g/dL (3.5-5.0); CALCIUM 8.4 mg/dL (8.8-10.2); CREATININE 1.7 mg/dL (0.5-0.9); MAGNESIUM 2.3 mg/dL (1.5-2.7); POTASSIUM 3.9 mmol/L (3.5-5.1); TOTAL BILIRUBIN 0.2 mg/dL (0.20-1.00); TOTAL PROTEIN 6.4 g/dL (6.3-8.3)
[2019-04-20] MEDS: PERICOLACE PO SCH (08:24)
[2019-04-20] MEDS: COZAAR PO SCH (08:24)
[2019-04-20] MEDS: THERA M PLUS PO SCH (08:24)
[2019-04-20] MEDS: SYNTHROID PO SCH (08:24)
[2019-04-20] MEDS: TOPROL XL PO SCH (08:24)
[2019-04-20] MEDS: BUSPAR PO SCH ×2 (08:24→14:42)
[2019-04-20] MEDS: CULTURELLE PO SCH (08:24)
[2019-04-20] MEDS: APRESOLINE PO SCH ×2 (08:24→14:42)
[2019-04-20] MEDS: MIRALAX PO SCH (08:25)
[2019-04-20] MEDS: TEARISOL OPH SOLUTION BOTH EYES SCH ×2 (08:25→12:27)
[2019-04-20] MEDS: PROTONIX PO SCH (08:25)
[2019-04-20] MEDS: LINZESS PO SCH (08:25)
[2019-04-20] MEDS: EXELON 4.6MG/24HRS TD SCH (08:25)
[2019-04-20] MEDS: ASPIRIN PO SCH (08:25)
[2019-04-20] MEDS: ROCEPHIN 1 GM in NS 50 ML IV SCH (12:31)
--- NOTE | 2019-04-20 13:40 | DISCHARGE SUMMARY ---
ADMISSION DATE: 04/16/2019 DISCHARGE DATE: 04/20/2019 She is a patient of Angelo Perales MD. She presented with shortness of breath on 04/16/2019, progressively worsened over the last 3 days. This 84-year-old female presented to [facility] from [facility] with some chest pain, shortness of breath the past 3 days. When she went to the emergency room blood pressure was 223/85, O2 saturation was 95% on 3 L. Chest x-ray revealed pulmonary edema and trace pleural effusion. She had a D-dimer that was mildly elevated at 0.76. Blood count was [address], white blood cell count. She has a history of CLL and so admitted her to the medical unit. PAST MEDICAL HISTORY: 1. COPD. 2. Diabetes mellitus type 2. 3. Dementia. 4. Congestive heart failure. 5. Hypertension. 6. Hyperlipidemia. 7. CLL. ADMISSION DIAGNOSES: 1. Acute congestive heart failure exacerbation with mild pulmonary venous hypertension. 2. Elevated D-dimer. 3. Hypertension, controlled. 4. Diabetes mellitus type 2. Pattern her sugars. IMAGING: Chest x-ray on 04/16/2019, cardiomegaly, interstitial pulmonary edema, trace pleural effusion. Repeat chest x-ray on 04/17/2019, minimal pulmonary edema and small pleural effusion. VT Scan was low probability for PTE. Abdominal x-ray on 04/19/2019 nonspecific abdomen. Mild if any constipation. She is feeling much better, breathing much better. She did receive diuresis and she wanted to go home. Last several blood sugars 235 to 232 and 244 which we treated for possible urinary tract infection and all those symptoms were vague and she got Levaquin which was changed to Rocephin. Cultures showed Proteus mirabilis which was sensitive to everything. It was resistant to Levaquin and was sensitive to cefazolin as urinary tract was treated. Recheck C difficile for antigen and toxin. It was negative for antigen and negative for toxin. Bowels are moving appropriately and she was requesting to go home. Note the blood pressures came down nicely, so plan to discharge her back to [facility]. She can have Artificial Tears, aspirin 325 mg a day, BuSpar 7.5 mg 3 times a day, Lasix will give her 40 mg p.o. twice a day, Apresoline 50 mg p.o. 4 times a day, Levemir 46 units subcutaneous at bedtime, Culturelle 1 a day, Synthroid 25 mcg p.o. daily, Linzess 72 mcg p.o. daily, Cozaar 50 mg a day, melatonin 5 mg p.o. at bedtime, Toprol-XL 100 mg p.o. daily, Thera M Plus 1 a day, Percocet 5-1/2 tablets q.6 hours p.r.n. pain, Protonix 40 mg a day, MiraLAX 17 g p.o. daily Exelon 4.6 mg q. 24 hours, Mora-Colace 2 of them daily and Desyrel 100 mg at bedtime. cc: Guilherme Jackson MD
[2019-04-20 14:09] VITALS: BP 158/45
== END 2019-04-20 16:09 | DRG 291 ==
LOC: SUPCPDRO → ED 10:48 → SUATTDRO 15:05 → 3N 15:05
PROVIDERS: ATTEND Emergency Medicine

== ENCOUNTER 2019-05-09 01:20 | Inpatient (IN) ==
[2019-05-09 02:23] LABS: ALLEN TEST YES; BE 5.4 mmoll (-3.0-3.0); BLOOD TYPE ARTERIAL; HCO3-(ACT) 29.1 mmoll (20.0-26.0); METHB 0.7 % (0.0-1.5); O2(CT) 17.3 mL/dL (15.0-23.0); O2HB 97.2 % (95.0-99.0); PCO2(98.6) 49 mmHg (35-45); PO2(98.6) 167 mmHg (60-100); SAMPLE BLOOD; SAO2 99.7 % (95.0-100.0); THB 12.4 g/dL (11.5-17.4); pH(98.6) 7.41 (7.35-7.45)
[2019-05-09 02:25] LABS: MODALITY BI PAP
[2019-05-09 03:16] LABS: BASO# 0.07 X1000 (0.0-0.2); BASO% 0.4 % (0.0-0.8); EOS# 0.38 X1000 (0.0-0.7); EOS% 1.9 % (0.0-10.0); HEMATOCRIT 40.3 % (37.0-47.0); HEMOGLOBIN 12.3 g/dL (12.0-16.0); IMM GRAN# 0.06 X1000 (0.0-0.04); IMM GRAN% 0.3 % (0.0-0.5); LYMPH# 3.06 X1000 (1.2-3.4); LYMPH% 15.6 % (20.5-51.1); MCH 28.7 PG (27-31); MCHC 30.5 g/dL (33-37); MCV 93.9 FL (81-99); MONO# 1.43 X1000 (0.11-0.59); MONO% 7.3 % (1.7-9.3); NEUT# 14.62 X1000 (1.4-6.5); NEUT% 74.5 % (42.2-75.2); PLT 172 X1000 (130-400); RBC 4.29 XMIL (4.2-5.4); RDW 13.8 % (11.5-14.5); WBC 19.62 X1000 (4.8-10.8)
[2019-05-09 04:26] LABS: ALB/GLOB RATIO 1.7; ALBUMIN 3.8 g/dL (3.5-5.0); CALCIUM 9.2 mg/dL (8.8-10.2); CREATININE 1.4 mg/dL (0.5-0.9); POTASSIUM 4.6 mmol/L (3.5-5.1); TOTAL BILIRUBIN 0.2 mg/dL (0.20-1.00)
--- NOTE | 2019-05-09 04:57 | PROVIDER DOCUMENTATION ---
This chart was entered by Stef Gaines Scribe, acting as scribe for José Manuel Hooper DO. HPI-Respiratory General - General Chief Complaint: Shortness of Breath Stated Complaint: dyspnea Time Seen by Provider: 05/09/19 01:23 Source: patient, EMS Allergies/Adverse Reactions: Patient Allergies Allergy/AdvReac Type Severity Reaction Status Date / Time atenolol [From Tenormin] Allergy Unknown Verified 02/16/16 08:47 atorvastatin calcium * Allergy Unknown Verified 02/16/16 08:47 [From Lipitor] clarithromycin [From Biaxin] Allergy Unknown Verified 02/16/16 08:47 diltiazem HCl * Allergy Unknown Verified 02/16/16 08:47 [From Cardizem] gabapentin [From Neurontin] Allergy Unknown Verified 02/16/16 08:47 Penicillins Allergy Unknown Verified 02/16/16 08:47 Sulfa (Sulfonamide Allergy Unknown Verified 02/16/16 08:47 Antibiotics) tetanus toxoid, adsorbed Allergy Unknown Verified 02/16/16 08:47 Home Medications: Home Medication List Medication Instructions Recorded Confirmed Last Taken Type Insulin Detemir [Levemir] 46 unit SQ HS 09/05/14 05/09/19 04/15/19 21:00 History 46 units Multivit,Calc,Mins/Iron/Folic 1 each PO DAILY 09/05/14 05/09/19 04/15/19 09:00 History [Thera M Plus Tablet] 1 tab Polyethylene Glycol 3350 [Miralax] 17 gm PO DAILY 09/05/14 05/09/19 04/15/19 09:00 History 17 gm Rivastigmine [Exelon 4.6MG/24Hrs] 1 each TD DAILY 09/05/14 05/09/19 04/15/19 09:00 History 4.6 mg TD Hydralazine [Apresoline] 50 mg PO 4XDAY 05/17/15 05/09/19 04/15/19 21:00 History 50 mg Metoprolol Succinate E.r. [Toprol 50 mg PO DAILY 05/17/15 05/09/19 04/15/19 17:0 0 History Xl] 50 mg Aspirin 325 mg PO DAILY 04/16/19 05/09/19 04/15/19 09:00 History 325 mg Dextrose/Dextrin/Maltose 31 gm PO DAILY PRN 04/16/19 05/09/19 Unknown History [Insta-Glucose Gel] Insulin Human Regular [Humulin R] 10 unit .SEE ORDER DIRECTED 04/16/19 05/09/19 04/15/19 17:00 History 10 units Levothyroxine [Synthroid] 25 microgm PO DAILY 04/16/19 05/09/19 04/16/19 05:00 History 25 mcg Linaclotide [Linzess] 72 mcg PO DAILY 04/16/19 05/09/19 04/16/19 06:00 History 72 mcg Losartan Potassium 50 mg PO DAILY 04/16/19 05/09/19 04/15/19 09:00 History 50 mg Melatonin/Pyridoxine [Melatonin 5 2 ea PO HS 04/16/19 05/09/19 04/15/19 21:00 H istory mg Tablet] 10 mg Metoclopramide [Reglan] 5 mg PO DAILY 04/16/19 05/09/19 04/15/19 09:00 History 5 mg Multivitamin,Therapeutic [Thera] 1 tab PO DAILY 04/16/19 05/09/19 Unknown His tory Nitroglycerin Sl [Nitroglycerin] 0.4 mg SUBLINGUAL DIRECTED 04/16/19 05/09/19 Unknown History Pantoprazole [Protonix] 40 mg PO DAILY 04/16/19 05/09/19 04/16/19 05:00 History 40 mg Sennosides/Docusate Sodium 2 tab PO DAILY 04/16/19 05/09/19 04/16/19 09:00 History [Senna-Docusate Sodium Tablet] 2 tab l Gasseri/B Bifidum/B Longum 1 cap PO DAILY 04/16/19 05/09/19 04/15/19 09:00 History [Orozco' Colon Health Capsule] 1 cap Acetaminophen [Tylenol] 650 mg PO Q6H PRN PRN tab 04/20/19 05/09/19 Unknown Rx Buspirone [Buspar] 7.5 mg PO TID 30 Days #90 tab 04/20/19 05/09/19 Unknown Rx Furosemide [Lasix] 40 mg PO DAILY 30 Days #60 tab 04/20/19 05/09/19 Unknown Rx Hydrocodone/APAP 10 mg/325 mg 1 ea PO Q6H PRN PRN 20 Days #40 tab 04/20/19 05/09/19 Unknown Rx [[place]-10] Trazodone [Desyrel] 100 mg PO QHS 30 Days #30 tab 04/20/19 05/09/19 Unknown Rx Carboxymethylcellulose Sodium 1 drp BOTH EYES TID 05/09/19 05/09/19 Unknown History [Artificial Tears] Mineral Oil/Petrolatum,White 1 dose BOTH EYES DIRECTED 05/09/19 05/09/19 Unknown History [Refresh Lacri-Lube Ointment] Ondansetron [Zofran] 4 mg PO Q4-6H PRN PRN 05/09/19 05/09/19 Unknown History Promethazine [Phenergan] 25 mg PO Q6-8H PRN PRN 05/09/19 05/09/19 Unknown History - History of Present Illness-Resp Nature of Presenting Problem: Pt is a 84 yof who presents to the ED via EMS with a CC of dyspnea. EMS reports they were called because the pt was having difficulty breathing and states she described it as a smothering sensation. EMS reports the pt was on a Duoneb upon their arrival and states the pt denied any relief. EMS reports they gave the pt an Albuterol and states the pt denied any relief. EMS reports they put the pt on a CPAP machine and states the pt stated her symptoms improved. Pt has a hx of COPD, dementia, CHF, and diabetes. Upon examination the pt had coarse rhonchi and rales bilaterally. Quality of Pain: reports: tightness Severity in ED: reports: mild Onset/Duration: reports: just prior to arrival, 1-3 hours ago Timing: reports: still present Exposure: reports: unknown cause Cough Quality/Degree: reports: no cough Episode Frequency: occasional episodes Current Respiratory Medication Therapy: Initiated see nurses note Associated Symptoms: reports: hurts to breathe, shortness of breath, wheezing Similar Symptoms Previously?: No Recently seen or treated by another doctor?: No Review of Systems - Adult - REVIEW OF SYSTEMS - ADULT Constitutional: reports: see HPI Eyes: reports: no symptoms reported Ears, Nose, Mouth & Throat: reports: no symptoms reported Cardiovascular: reports: no symptoms reported Respiratory: reports: see HPI, dyspnea on exertion, shortness of breath, wheezing Gastrointestinal: reports: no symptoms reported Genitourinary: reports: no symptoms reported Musculoskeletal: reports: see HPI Integumentary: reports: no symptoms reported Neurological: reports: no symptoms reported Psychiatric: reports: no symptoms reported Endocrine: reports: no symptoms reported Hematologic/Lymphatic: reports: no symptoms reported Allergic/Immunologic: reports: no symptoms reported All Other Systems: Reviewed and Negative Past History - Adult - PAST MEDICAL HISTORY-ADULT Review of Records: reports: Old Records Reviewed, Nursing Assessment Review, Medications Reviewed, Social history reviewed & non-contributory. Major Childhood Illnesses: reports: denies history Cardiovascular: reports: angina, CAD, HTN Respiratory: reports: COPD, pneumonia Gastrointestinal: reports: GERD Obstetrical/Gynecological: reports: denies history Genitourinary: reports: denies history Musculoskeletal: reports: arthritis, chronic pain (low back pain), other (neuropathy; Macular Degeneration) Neurological: reports: dementia (mild) Endocrine/Immune: reports: Diabetes Other Conditions: reports: denies history - PRIOR SURGERIES/PROCEDURES Surgical/Procedure History: reports: cholecystectomy, hysterectomy, orthopedic (extremity) (knee Sx), other (throat Sx) - IMMUNIZATION STATUS Childhood Immunizations: See Nurse Assessment Flu Vaccine: UTD - FAMILY HISTORY Family History: reviewed, not pertinent - SOCIAL HISTORY Smoking: denies, non-smoker Substance Use: alcohol Alcohol Use Frequency: occasionally Physical Exam-General - PHYSICAL EXAM-ADULT Initial Vital Signs Reviewed: Yes - CONSTITUTIONAL General Appearance: alert, moderate distress - EYES Eyes: PERRL/EOMI, pink conjunctivae - HEAD, EARS, NOSE, MOUTH & THROAT HENMT: normocephalic/atraumatic, moist mucous membranes - NECK Neck: non-tender, full range of motion - RESPIRATORY Respiratory: chest non-tender, rales, rhonchi, wheezing - CARDIOVASCULAR Cardiovascular: normal peripheral pulses, regular rate, rhythm - GASTROINTESTINAL (ABDOMEN) Abdominal Exam: non tender, soft - MUSCULOSKELETAL Extremity: calf tenderness - SKIN Integumentary: normal color, warm/dry - NEUROLOGIC Neurologic: grossly normal, no motor/sensory deficits - PSYCHIATRIC Psych/Mental Status: normal mood/affect, normal thought content, normal thought process, oriented x 3 Progress - PLAN OF CARE/RESULTS Progress/Plan/Lab Results: Vital Signs - 8 hr 05/09/19 01:33 05/09/19 02:35 Temperature 97.6 F Pulse Rate 84 Respiratory Rate 24 Blood Pressure 246/87 O2 Sat by Pulse Oximetry 98 100 Laboratory Results - last 24 hr 05/09/19 05/09/19 05/09/19 01:33 02:08 02:08 WBC RBC Hgb Hct MCV MCH MCHC RDW Std Deviation Plt Count MPV Immature Gran % (Auto) Neut % (Auto) Lymph % (Auto) [place] % (Auto) Eos % (Auto) Baso % (Auto) Immature Gran # (Auto) Neut # (Auto) Lymph # (Auto) [place] # (Auto) Eos # (Auto) Baso # (Auto) Specimen Type ARTERIAL Sample Site R RADIAL pH 7.41 pCO2 49 H pO2 167 H HCO3 29.1 H Base Excess 5.4 H Oxyhemoglobin 97.2 ABG O2 Sat (Calculated) 17.3 ABG O2 Saturation 99.7 ABG Carboxyhemoglobin 1.80 ABG Methemoglobin 0.7 Guilherme Test YES A-a O2 Difference 128.0 Total Hemoglobin 12.4 Lactate 1.60 Blood Gas Modality BI PAP FiO2 % 50.0 Inspiratory BiPAP 14.0 Expiratory BiPAP 5.0 Sodium 142 Potassium 4.6 Chloride 98 Carbon Dioxide 22 L Anion Gap 22 BUN 31 H Creatinine 1.4 H Estimated GFR/1.73 m2 36 BUN/Creatinine Ratio 22 Glucose 322 H Calculated Osmolality 302 Calcium 9.2 Total Bilirubin 0.20 AST 27 ALT 14 Alkaline Phosphatase 127 H Creatine Kinase 32 Troponin T Kds-W-Gzihmsnscly Pept Total Protein 6.0 L Albumin 3.8 Globulin 2.2 Albumin/Globulin Ratio 1.7 05/09/19 05/09/19 05/09/19 02:08 02:08 04:12 WBC 19.62 H RBC 4.29 Hgb 12.3 Hct 40.3 MCV 93.9 MCH 28.7 MCHC 30.5 L RDW Std Deviation 13.8 Plt Count 172 MPV Not Reportable Immature Gran % (Auto) 0.3 Neut % (Auto) 74.5 Lymph % (Auto) 15.6 L [place] % (Auto) 7.3 Eos % (Auto) 1.9 Baso % (Auto) 0.4 Immature Gran # (Auto) 0.06 H Neut # (Auto) 14.62 H Lymph # (Auto) 3.06 [place] # (Auto) 1.43 H Eos # (Auto) 0.38 Baso # (Auto) 0.07 Specimen Type Sample Site pH pCO2 pO2 HCO3 Base Excess Oxyhemoglobin ABG O2 Sat (Calculated) ABG O2 Saturation ABG Carboxyhemoglobin ABG Methemoglobin Guilherme Test A-a O2 Difference Total Hemoglobin Lactate Blood Gas Modality FiO2 % Inspiratory BiPAP Expiratory BiPAP Sodium Potassium Chloride Carbon Dioxide Anion Gap BUN Creatinine Estimated GFR/1.73 m2 BUN/Creatinine Ratio Glucose Calculated Osmolality Calcium Total Bilirubin AST ALT Alkaline Phosphatase Creatine Kinase Troponin T 0.016 [id number]-I-[id number] Pept 1928 H Total Protein Albumin Globulin Albumin/Globulin Ratio Orders Category Date Time Status CHEST-PORTABLE [RAD] Stat Exams 05/09/19 01:24 Taken ABG [RESP] Routine Lab 05/09/19 01:33 Completed CBC WITH ELECTRONIC DIFF [HEME] Stat Lab 05/09/19 02:08 Completed CK PROFILE [SP CHEM] Stat Lab 05/09/19 02:08 Completed COMPREHENSIVE METABOLIC PANEL [CHEM] Stat Lab 05/09/19 02:08 Completed PRO B-NATRIURETIC PEPTIDE Stat Lab 05/09/19 02:08 Completed TROPONIN T Stat Lab 05/09/19 04:12 Completed BIPAP Stat Oth 05/09/19 02:40 Active Result Diagrams: 05/09/19 02:08 05/09/19 02:08 - CONSULTS/PCP/HOSPITALIST Notification #1 *Consult/PCP/Hospitalist*: Dr Mancuso Time Discussed: 04:57 Consult Disposition: Will see in ED Departure - Departure Date of Disposition Decision: 05/09/19 Time of Disposition Decision: 04:56 DIAGNOSIS: SOB (shortness of breath), Acute pulmonary edema with congestive heart failure Disposition: ADMITTED INPATIENT 09 Certified Medical Emergency: Emergent Condition: Serious Additional Instructions: ED Follow Up Instructions: You have been treated by a care provider in the Emergency Department. These instructions are being provided to you so you can have an understanding of how to care for yourself upon discharge. Upon discharge from the Emergency Department, you are responsible for making arrangements for follow-up care by a physician of your choice. Take all prescribed medications as directed. Return to the Emergency Department immediately for any new or worsening symptoms. You may call the Physician Referral phone number at [phone] to obtain a list of Physicians who are taking new patients. Referrals and Follow-Ups: Angella Stephens MD [Primary Care Provider] - - Critical Care Note This patient required my direct & personal management of CC.: No Attestation - Physician/ SARAHY Attestation Patient care was provided by Advanced Practice Provider:: No The physician spent face to face time with patient:: Yes Advanced Practice Provider documentation review:: Supervising physician onsite and consulted in the evaluation and care of this patient. The physician did have a face to face encounter with the patient. This chart was documented by the indicated scribe, (Stef Gaines, Fayee) and accurately reflects the services I performed and decisions made by , José Manuel Hooper DO, as attested by the provider's signature.
[2019-05-09] MEDS ORDERED: ZOFRAN IV PRN ×2 (06:25→06:27)
[2019-05-09] MEDS: LASIX IV SCH ×2 (07:05→18:17)
[2019-05-09] MEDS: HUMALOG SUBQ SCH ×4 (08:16→21:33)
[2019-05-09] MEDS: APRESOLINE IV PRN ×2 (08:16→13:56)
--- NOTE | 2019-05-09 09:25 | Diag Imaging Result Doc PS360 ---
CHEST-PORTABLE - 05/09/2019 INDICATION: sob COMPARISON: 04/17/2019 FINDINGS: There is cardiomegaly and pulmonary vascular congestion. There is chronic pulmonary edema in the lung bases. There are chronic, trace pleural effusions. IMPRESSION: Cardiomegaly, pulmonary edema, trace pleural effusions. Electronically signed by Adrián Dudley 05/09/2019 9:23 AM
[2019-05-09] MEDS: TOPROL XL PO SCH (09:44)
[2019-05-09] MEDS: COZAAR PO SCH (09:44)
[2019-05-09] MEDS: SYNTHROID PO SCH (09:44)
[2019-05-09 10:34] LABS: ALLEN TEST NO; BE 8.2 mmoll (-3.0-3.0); BLOOD TYPE ARTERIAL; HCO3-(ACT) 31.2 mmoll (20.0-26.0); METHB 1.2 % (0.0-1.5); MODALITY CANNULA; O2(CT) 19.4 mL/dL (15.0-23.0); O2HB 94.8 % (95.0-99.0); PCO2(98.6) 50 mmHg (35-45); PO2(98.6) 83 mmHg (60-100); SAMPLE BLOOD; THB 14.5 g/dL (11.5-17.4); pH(98.6) 7.44 (7.35-7.45)
--- NOTE | 2019-05-09 12:53 | HISTORY AND PHYSICAL ---
CHIEF COMPLAINT: Shortness of breath. HISTORY OF PRESENT ILLNESS: The patient is an 84-year-old female who has a known history of congestive heart failure and diabetes. She currently resides in a snf. The snf noted earlier today that she had increased work of breathing, shortness of breath and therefore, transported her back to the hospital. She was just admitted and discharged on April 20. While in the ER she was noted to have increased work of breathing, moderately labored. Blood pressures were elevated at 200/80, which is very similar to her last admission when blood pressures were 223/85. She was placed on BiPAP in the ER. PAST MEDICAL HISTORY: CLL, COPD, diabetes, dementia, congestive heart failure, hypertension, hyperlipidemia, chronic reflux, chronic constipation, hypothyroidism, chronic pain, chronic anxiety. MEDICATIONS: Tylenol 650, aspirin 325, BuSpar 7.5 t.i.d. p.r.n., Lasix 40 daily, hydralazine 50 four times daily, [place] 10 q.6 p.r.n., Levemir 46 units at bedtime, Humulin R per sliding scale, levothyroxine 25 daily, Linzess 72 daily, losartan 50 daily, Reglan 5 daily, metoprolol 50 daily, multivitamin, Protonix 40 daily, Phenergan p.r.n., Exelon patch 4.6 q.24 hours and trazodone 100 at bedtime. REVIEW OF SYSTEMS: Effectively unobtainable from Ms. Swartz. However, her son denies any knowledge of fevers or any type of infection. He denied any knowledge of GI or issues. ALLERGIES: Tenormin, Lipitor, Biaxin, Cardizem, Neurontin, penicillin, sulfa, and tetanus toxoid, all unknown allergies. FAMILY HISTORY: Noncontributory. SURGICAL HISTORY: Status post cholecystectomy, hysterectomy. She has had knee surgery and throat surgery. SOCIAL HISTORY: She is a nonsmoker. Does occasionally drink alcohol. Currently resides in a snf. PHYSICAL EXAMINATION: VITAL SIGNS: Reviewed. Temperature 97.6 degrees, pulse 84, respiratory 24, BP 246/87, saturating 98% on room air. GENERAL: Patient is awake. She is in moderate distress, although much improved on BiPAP. HEENT: Normocephalic. NECK: Supple. CARDIOVASCULAR: Regular rate. No murmurs. CHEST: Greatly decreased breath sounds, but equal bilaterally. No apparent crackles. No wheezing. ABDOMEN: Soft, nondistended, nontender. EXTREMITIES: Moves all extremities. Does have trace edema. NEUROLOGIC: She is awake, alert. She is pleasant, easily confused, has no focal changes. SKIN: Warm, dry, no rashes. ASSESSMENT: 1. Malignant hypertension. 2. Congestive heart failure with exacerbation. 3. Diabetes with elevated glucose at 322. 4. Chronic renal failure. Creatinine is 1.4. This appears to be her baseline. 5. 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 6. Hypothyroidism. 7. Chronic anxiety, depression. PLAN: We are going to continue patient on BiPAP, place her on Lasix. Will restart her home medications as she tolerates them. We are going to start with hydralazine IV for her blood pressure as she becomes quite symptomatic when she removes BiPAP for any reason. Place her on sliding scale insulin. Her previous A1c 2 weeks ago was 8.1. Will not start antibiotics currently as there is no source of infection, although will follow her white count. cc: Easton Mancuso MD
--- NOTE | 2019-05-09 14:03 | EKG Report ---
Test Performed on : 05/09/2019 1:51:27 PM Test Reason : SHORTNESS OF BREATH Blood Pressure : / mmHG Vent. Rate : 073 BPM Atrial Rate : 073 BPM P-R Int : 216 ms QRS Dur : 100 ms QT Int : 450 ms P-R-T Axes : 077 -11 130 degrees QTc Int : 495 ms Sinus rhythm. with 1st degree AV block. Left ventricular hypertrophy with repolarization abnormality Abnormal ECG When compared with ECG of 16-APR-2019 11:08, (Unconfirmed) premature ventricular complexes. are no longer present Criteria for Anteroseptal infarct are no longer present Nonspecific T wave abnormality now evident in Inferior leads Unconfirmed Result
[2019-05-09] MEDS: BUSPAR PO SCH ×2 (14:38→21:31)
[2019-05-09] MEDS: ALDACTONE PO SCH (14:38)
[2019-05-09] MEDS: DUONEB (A & A) INH PRN (15:46)
[2019-05-09] MEDS: APRESOLINE PO SCH ×2 (16:13→21:31)
[2019-05-09 16:24] LABS: URINE SOURCE CLEAN CATCH
[2019-05-09 16:28] LABS: BILIRUBIN URINE NEGATIVE (NEGATIVE); BLOOD URINE NEGATIVE (NEGATIVE); COLOR YELLOW; GLUCOSE URINE NEGATIVE (NEGATIVE); KETONE URINE NEGATIVE (NEGATIVE); LEUKOCYTES URINE LARGE (NEGATIVE); NITRITE URINE NEGATIVE (NEGATIVE); PH URINE 6.5; PROTEIN URINE 300 mg/dL (NEGATIVE); SP GRAVITY URINE 1.011; TURBIDITY URINE HAZY (CLEAR); UROBILINOGEN URINE NORMAL (NORMAL)
[2019-05-09 16:29] LABS: UR EPITHELIAL CELLS <10 /HPF (<10); URINE BACTERIA 4+ /HPF; URINE RBC <10 /HPF (<10); URINE WBC TNTC /HPF (<10)
[2019-05-09 16:44] LABS: URINE CASTS NONE SEEN; URINE CRYSTALS NONE SEEN; URINE SMALL ROUND CELLS TRANS PRESENT; URINE YEAST NONE SEEN
--- NOTE | 2019-05-09 16:57 | PROGRESS NOTE ---
DATE: 05/09/2019 SUBJECTIVE: Today Ms. Swartz refers to be doing slightly better. She said her shortness of breath has improved. OBJECTIVE: Current vitals: Blood pressure is 219/64, pulse of 64, respiration is 15, temperature 97.4 degrees, patient is saturating 99% on the BiPAP. General exam: Ms. Swartz is an 84-year-old elderly female. She is in bed, no distress. She is currently under the BiPAP. She seems to be tolerating that well. Neck: Supple. Mild JVD. Chest: Air entry is bilaterally reduced. There are crepitations bilaterally. Cardiovascular: Regular rate and rhythm. No murmurs. Abdomen: Soft, generally distended, but nontender. There is an old low-lying horizontal abdominal scar from previous gynecological surgery. Extremities: Trace pedal edema. 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 No focal deficit. LABORATORY DATA: WBC is up to 19.62, hemoglobin is 12.2, platelet count of 172. Chemistry is also reviewed. Creatinine is 1.4. Patient seems to have long-standing CKD. Glucose of 322. ProBNP is 1928. IMAGING STUDIES: Shows cardiomegaly, pulmonary edema, trace pleural effusions. Review of previous imaging studies: An echocardiogram which was done on 04/16/2019 showed an ejection fraction of 65 to 75 percent. There is severe left ventricular hypertrophy. CURRENT MEDICATIONS: Have all been reviewed, and we have also restarted her back on her home medications. ASSESSMENT: 1. Hypertensive emergency on presentation, complicated with acute pulmonary edema. 2. Acute diastolic heart failure. 3. Severe left ventricular hypertrophy secondary to hypertensive heart disease with ejection fraction of 65% to 70% on recent echocardiogram. 4. Chronic hypercarbic respiratory failure. 5. Morbid obesity with suspected obstructive sleep apnea. 6. Acute on chronic hypoxemic respiratory failure. Patient says she has been using oxygen recently. We will continue to use supplemental oxygen as needed. 7. Diabetes mellitus. We will restart her on her home insulin treatment, and continue with sliding scale for supplemental needs. PLAN: So, for now we are going to continue titrating the blood pressure. We have added losartan and Aldactone for better blood pressure control. Her home medications have also been restarted. We will continue with the IV Lasix to address the fluid and the pulmonary edema. We will repeat her labs and chest x-ray tomorrow morning. Of note, her troponins have been trended twice, so far unremarkable. We are pending an EKG which has not been done at the time of the dictation. cc: Kvng Yao MD MTDD
[2019-05-09] MEDS: TEARISOL OPH SOLUTION BOTH EYES SCH ×2 (18:18→21:32)
[2019-05-09] MEDS: DESYREL PO SCH (21:31)
[2019-05-09] MEDS: LEVEMIR SUBQ SCH (21:40)
[2019-05-10] MEDS: PROTONIX PO SCH (05:39)
[2019-05-10] MEDS: LASIX IV SCH (05:40)
[2019-05-10] MEDS: HUMALOG SUBQ SCH ×3 (06:09→16:44)
[2019-05-10 06:24] LABS: HEMATOCRIT 37.7 % (37.0-47.0); HEMOGLOBIN 11.5 g/dL (12.0-16.0); MCH 29.3 PG (27-31); MCHC 30.5 g/dL (33-37); MCV 95.9 FL (81-99); MPV 15.2 FL (7.4-10.4); RBC 3.93 XMIL (4.2-5.4); RDW 14.1 % (11.5-14.5); WBC 12.24 X1000 (4.8-10.8)
[2019-05-10] MEDS ORDERED: PNEUMOVAX 23 IM ONE (06:27)
[2019-05-10 06:53] LABS: ALB/GLOB RATIO 1.3; ALBUMIN 3.5 g/dL (3.5-5.0); CALCIUM 9.5 mg/dL (8.8-10.2); CREATININE 1.5 mg/dL (0.5-0.9); POTASSIUM 3.8 mmol/L (3.5-5.1); TOTAL BILIRUBIN 0.32 mg/dL (0.20-1.00); TOTAL PROTEIN 6.2 g/dL (6.3-8.3)
[2019-05-10] MEDS: DUONEB (A & A) INH PRN (08:04)
[2019-05-10] MEDS: MIRALAX PO SCH (08:49)
[2019-05-10] MEDS: PERICOLACE PO SCH (08:49)
[2019-05-10] MEDS: THERA M PLUS PO SCH (08:49)
[2019-05-10] MEDS: BUSPAR PO SCH ×3 (08:49→20:57)
[2019-05-10] MEDS: COZAAR PO SCH (08:50)
[2019-05-10] MEDS: TEARISOL OPH SOLUTION BOTH EYES SCH ×3 (08:50→20:43)
[2019-05-10] MEDS: SYNTHROID PO SCH (08:50)
[2019-05-10] MEDS: APRESOLINE PO SCH ×4 (08:50→20:50)
[2019-05-10] MEDS: ALDACTONE PO SCH (08:50)
[2019-05-10] MEDS ORDERED: THERA M PLUS PO SCH (09:00)
--- NOTE | 2019-05-10 09:40 | PROGRESS NOTE ---
DATE: 05/10/2019 SUBJECTIVE: This morning Ms Swartz refers to be doing a lot better. She said shortness of breath has significantly improved. She was just on nasal cannula. OBJECTIVE: Vital signs: Blood pressure is 167/52, pulse of 81, respirations 14, temperature is 97.9 degrees. General: Ms. Killian is an 84-year-old elderly female. She was in bed, no distress. HEENT: Mucosa is pink and moist. Anicteric. Acyanotic. Neck: Supple. No jugular venous distention. Chest: Good air entry bilaterally. Few crackles in the posterior lung nayak. Cardiovascular: Regular rate and rhythm. No murmurs, no rubs, no gallops. GI: Abdomen is soft. There is an old low-lying horizontal abdominal scar from previous gynecological surgery. Extremities: Trace pedal edema. There is a scar on the left knee consistent of a previous orthopedic surgery. 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 LABORATORY DATA: WBC is 12.24, hemoglobin is 11.5, platelet count of 168,000. Chemistry is also reviewed. Creatinine is 1.5. Pro B actually up to 2 to 3952. No. IMAGING STUDIES: No imaging studies this morning. CURRENT MEDICATIONS: Have been reviewed. ASSESSMENT: 1. Hypertensive emergency on presentation, complicated with acute pulmonary edema, improving. 2. Acute diastolic heart failure. We will continue with treating the underlying etiology, in this case the blood pressure. 3. Severe left ventricle hypertrophy secondary to hypertensive heart disease. Ejection fraction is 65 to 70 percent on recent echo. 4. Acute on chronic hypercarbic respiratory failure improved. 5. Morbid obesity with suspected obstructive sleep apnea. 6. Acute on chronic hypoxemic respiratory failure. Patient is currently on oxygen therapy. 7. Diabetes mellitus. We will continue with insulin. We will continue with insulin regimen. 8. Chronic kidney disease stage III, noted creatinine is stable. PLAN: So in general, I think Ms. Swartz is doing a lot better. Blood pressure is better controlled. She does not feel short of breath as before. Congestive symptoms are improving. We are going to be scaling down on her diuretic therapy. We will switch this to p.o. We will continue with her current antihypertensive medications and titrate the blood pressure for a better control. cc: MD FAHAD Brown
[2019-05-10] MEDS: LINZESS PO SCH (09:52)
[2019-05-10] MEDS: LASIX PO SCH ×2 (11:29→20:44)
[2019-05-10] MEDS: TOPROL XL PO SCH (11:29)
[2019-05-10] MEDS: DESYREL PO SCH (20:50)
[2019-05-10] MEDS: LEVEMIR SUBQ SCH (22:42)
[2019-05-10] MEDS ORDERED: INSULIN PEN NEEDLES ONE (22:50)
[2019-05-10] MEDS: TYLENOL PO PRN (23:53)
[2019-05-11] MEDS: HUMALOG SUBQ SCH ×5 (00:13→21:02)
[2019-05-11] MEDS: PROTONIX PO SCH (06:05)
[2019-05-11] MEDS: LINZESS PO SCH (06:05)
[2019-05-11 06:14] LABS: HEMATOCRIT 34.1 % (37.0-47.0); HEMOGLOBIN 10.4 g/dL (12.0-16.0); MCH 29.5 PG (27-31); MCHC 30.5 g/dL (33-37); MCV 96.6 FL (81-99); PLT 154 X1000 (130-400); RBC 3.53 XMIL (4.2-5.4); RDW 14.1 % (11.5-14.5); WBC 12.12 X1000 (4.8-10.8)
[2019-05-11 06:57] LABS: ALB/GLOB RATIO 1.3; ALBUMIN 3.1 g/dL (3.5-5.0); CALCIUM 8.8 mg/dL (8.8-10.2); MAGNESIUM 2.1 mg/dL (1.5-2.7); POTASSIUM 3.8 mmol/L (3.5-5.1); TOTAL BILIRUBIN 0.21 mg/dL (0.20-1.00); TOTAL PROTEIN 5.4 g/dL (6.3-8.3)
[2019-05-11] MEDS: SYNTHROID PO SCH (08:08)
[2019-05-11] MEDS: PERICOLACE PO SCH (08:08)
[2019-05-11] MEDS: ALDACTONE PO SCH (08:08)
[2019-05-11] MEDS: LASIX PO SCH ×2 (08:08→21:00)
[2019-05-11] MEDS: TOPROL XL PO SCH (08:08)
[2019-05-11] MEDS: BUSPAR PO SCH ×3 (08:08→21:00)
[2019-05-11] MEDS: MIRALAX PO SCH (08:08)
[2019-05-11] MEDS: APRESOLINE PO SCH ×4 (08:08→21:01)
[2019-05-11] MEDS: THERA M PLUS PO SCH (08:08)
[2019-05-11] MEDS: COZAAR PO SCH (08:08)
[2019-05-11] MEDS: TEARISOL OPH SOLUTION BOTH EYES SCH ×3 (08:09→21:06)
--- NOTE | 2019-05-11 09:16 | Diag Imaging Result Doc PS360 ---
EXAM: CHEST-PORTABLE 05/11/2019 HISTORY: CHF TECHNIQUE: AP portable at 0847 COMMENT: The inspiration is less optimal than on 05/09/2019. The opacity which was previously present over the left base has diminished and the hemidiaphragm is now visible. IMPRESSION: Improved pulmonary edema versus pneumonia. Electronically signed by Nirmal Zambrano 05/11/2019 9:14 AM
--- NOTE | 2019-05-11 10:48 | PROGRESS NOTE ---
DATE: 05/11/2019 SUBJECTIVE: This morning, Ms. Swartz refers to be a lot better. She was actually requesting to see if she can be discharged. She says she is breathing better than before. OBJECTIVE: Vital signs: Blood pressure was 217/62, pulse of 73, respirations 16, temperature 98.4 degrees. General: Ms. Swartz is an 84-year-old elderly female. She is in bed, no distress. HEENT: Mucosa is pink and moist. Anicteric. Acyanotic. Neck: Supple. Chest: Clear to auscultation. Did not hear any crackles or rhonchi. Cardiovascular: Regular rate and rhythm. No murmurs, no rubs, no gallops. Abdomen: Soft. There is an old low-lying horizontal abdominal scar from previous gynecological surgery. Extremities: No pedal edema. There is an old scar on the left knee consistent with previous orthopedic surgery. FARM ADVISOR: Patient is awake, alert, and oriented. LABORATORY DATA: WBC is 12.12, hemoglobin is 10.4, platelet count of 154,000. Sodium is 146, potassium is 3.0, chloride 100, BUN is 39, creatinine is 2.0. ProBNP is down to 2836. The patient's I's and O's: Urine output is 850 documented, is currently negative balance of 610. A chest x-ray this morning shows improved pulmonary edema versus pneumonia. CURRENT MEDICATIONS: Have also been reviewed. ASSESSMENT: 1. Acute on chronic hypoxemic respiratory failure on presentation secondary to pulmonary edema, improved. 2. Acute diastolic heart failure secondary to uncontrolled hypertension, proBNP is trending down. 3. Hypertensive emergency/urgency on admission, complicated with acute symptomatic pulmonary edema. The patient is significantly improved from symptom standpoint. Blood pressure is also being managed. 4. Severe left ventricular hypertrophy due to hypertensive heart disease. Ejection fraction of 65% to 70% on recent echo noted. 5. Morbid obesity with suspected obstructive sleep apnea. Patient has been advised to follow up with sleep team. 6. Diabetes mellitus. We will continue with insulin regimen. 7. Chronic kidney disease stage III, that has progressively gotten worsen. Unsure if it is because of the diuretics that she is getting or a reflection of her blood pressure renal hemodynamics. We have consulted Nephrology to evaluate her today. 8. Asymptomatic gram-negative in urine (asymptomatic bacteriuria). No need for treatment. PLAN: In general, I think Ms. Swartz is remarkably better. Shortness of breath has improved. ProBNP seems to be trending down and her congestive symptoms have resolved. Unfortunately, her blood pressure continues to be elevated, so we have added amlodipine to help with her blood pressure control. Her renal function has slightly worsened, which could be because of the diuretics or other possible etiologies. We are going to do urine studies, renal ultrasound and get Nephrology to evaluate her. So the patient denies any urinary symptoms, so will not treat this. DISPOSITION: Ms. Swartz is a resident of long-term [facility]. I think once she is medically stable and has been evaluated by Nephrology, she can be discharged pending final recommendations. cc: Kvng Yao MD
[2019-05-11] MEDS: NORVASC PO SCH ×2 (11:59→21:01)
--- NOTE | 2019-05-11 15:01 | Diag Imaging Result Doc PS360 ---
EXAM: US RENAL 2 (RETROPER) COMPLETE 05/11/2019 HISTORY: devon/arf TECHNIQUE: Renal ultrasound COMMENT: There is no evidence of hydronephrosis or mass. The urinary bladder is not distended. There appears to be some sediment in the bladder. The right kidney is 11.4 x 4.7 x 4.3 cm the left is 9.5 x 4.7 x 5.3 cm. IMPRESSION: No evidence of obstructive uropathy. Electronically signed by Nirmal Zambrano 05/11/2019 2:58 PM
--- NOTE | 2019-05-11 16:03 | NEPHROLOGY CONSULTATION ---
DATE: 05/11/2019 REASON FOR CONSULTATION: Acute kidney injury. HISTORY OF PRESENT ILLNESS: Ms Swartz is an 84-year-old white female who has been in the hospital since the morning of the . She resides in a local [facility] facility. She has been back in that facility for 1 week since discharge from [facility]. She was admitted on that occasion with congestive heart failure by Dr. Jackson. She had been sick for approximately 3 days. She was hospitalized from the until the . She states her shortness of breath recurred rather immediately on return to the nursing facility. She states she complained every night about worsening shortness of breath and ultimately was brought in the middle of the night on Saturday because of her dyspnea. She had no chills or fevers. Nonproductive cough. Hypertension. Her symptoms are all better now. She is resting on nasal cannula oxygen. She has never been aware of kidney disease. No anorexia, nausea, vomiting. No change in bowel or bladder habits. PAST MEDICAL HISTORY: As above. She also has a history of hypertension, hyperlipidemia. LVEF is normal. Chronic pain syndrome. HOME MEDICATIONS: Include Tylenol, aspirin, buspirone, furosemide, hydralazine, [place], insulin, levothyroxine, Linzess, losartan, Reglan, metoprolol, Protonix, Phenergan, Exelon, trazodone. ALLERGIES: Multiple as listed. SOCIAL HISTORY: As above. No alcohol or tobacco. FAMILY HISTORY: Otherwise noncontributory. REVIEW OF SYSTEMS: Otherwise noncontributory. PHYSICAL EXAMINATION: Vital Signs: Blood pressure 198/67, heart rate 65, respiration 14, afebrile. General: Chronically ill, elderly woman. No acute distress. Skin is warm and dry, thin with ecchymoses. Conjunctivae are pink. Pupils are equal. Oropharynx is clear, edentulous. Neck: Supple. Neck vein distention is present. Trachea is midline. Heart: Regular without gallops or rubs. Lungs: Have equal excursion, equal breath sounds. No crackles or wheezes. Abdomen: Soft, obese, nontender. Bowel sounds present. No organomegaly or masses. Extremities: Have 1+ edema. No clubbing or cyanosis. IMPRESSION: Acute kidney injury. Baseline creatinine around 1.3. She was at this baseline on presentation. Creatinine has risen to 2.0 with diuretic therapy. She does have significant proteinuria on her dipstick and her urine is positive for Klebsiella greater than 100,000 colony count. She is being treated with low-dose intravenous diuretics. She is not currently receiving antibiotic therapy for her bacteruria. Her blood pressure control is poor. I will change her Toprol to carvedilol for better blood pressure effect and stop her losartan. We will follow. cc: Chuy Moncada MD
[2019-05-11] MEDS: DESYREL PO SCH (21:00)
[2019-05-11] MEDS: COREG PO SCH (21:00)
[2019-05-11] MEDS: LEVEMIR SUBQ SCH (21:01)
[2019-05-11] MEDS: TYLENOL PO PRN (21:52)
[2019-05-12] MEDS: PROTONIX PO SCH (05:56)
[2019-05-12] MEDS: LINZESS PO SCH ×2 (05:56→06:14)
[2019-05-12] MEDS: HUMALOG SUBQ SCH ×3 (06:13→16:33)
[2019-05-12 06:17] LABS: HEMOGLOBIN 10.2 g/dL (12.0-16.0); MCH 29.1 PG (27-31); MCV 96.9 FL (81-99); PLT 144 X1000 (130-400); RBC 3.51 XMIL (4.2-5.4); RDW 14.1 % (11.5-14.5)
[2019-05-12 06:32] LABS: ALBUMIN 3.1 g/dL (3.5-5.0); CALCIUM 8.7 mg/dL (8.8-10.2); MAGNESIUM 2.2 mg/dL (1.5-2.7); PHOSPHORUS 4.2 mg/dL (2.7-4.5); POTASSIUM 3.8 mmol/L (3.5-5.1)
--- NOTE | 2019-05-12 07:16 | Diag Imaging Result Doc PS360 ---
EXAM: CHEST-PORTABLE 05/12/2019 HISTORY: dyspnea TECHNIQUE: AP portable semiupright at 0526 COMMENT: There is no evidence of acute cardiac or pulmonary disease. Compared to 05/11/2019, the inspiration is better and the lung bases appear clear. IMPRESSION: No acute disease. Electronically signed by Nirmal Zambrano 05/12/2019 7:13 AM
[2019-05-12] MEDS: MIRALAX PO SCH (08:51)
[2019-05-12] MEDS: NORVASC PO SCH ×2 (08:53→20:30)
[2019-05-12] MEDS: PERICOLACE PO SCH (08:53)
[2019-05-12] MEDS: COREG PO SCH ×2 (08:53→20:30)
[2019-05-12] MEDS: LASIX PO SCH (08:54)
[2019-05-12] MEDS: BUSPAR PO SCH ×3 (08:54→20:30)
[2019-05-12] MEDS: THERA M PLUS PO SCH (08:54)
[2019-05-12] MEDS: SYNTHROID PO SCH (08:54)
[2019-05-12] MEDS: ALDACTONE PO SCH (08:54)
[2019-05-12] MEDS: APRESOLINE PO SCH ×4 (08:54→20:28)
[2019-05-12] MEDS: TEARISOL OPH SOLUTION BOTH EYES SCH ×3 (08:54→20:35)
[2019-05-12] MEDS: ZOSYN 2.25 GM in NS 50 ML IV SCH ×2 (13:38→20:28)
--- NOTE | 2019-05-12 16:06 | PROVIDER PROGRESS NOTE ---
Progress Note Subjective: pt lying in bed awake, voices feeling better, denies any uremic complaints. Objective: vitals. Temperature 98.7, pulse 68, respirations 16, blood pressure 152/51, 02 sat 97% of nasal cannula at 3 L HEENT: Normocephalic, atraumatic. Trachea midline. Mucous membranes moist. Pupils equal and reactive. Skin: Pale, scattered bruises Neck: supple, 6 cm jvd noted. Cardiovascular: distant, regular rate or rhythm, no murmur or gallop Respiratory: clear with equal air excursion bilaterally Abdominal: firm, non tender, non distended, active sounds : non inspected Extremities: Trace edema to upper and lower extremities Neurological: alert and oriented to person and place and time. Labs: WBC 11.20, hemoglobin 10.2, hematocrit 34, platelet count 144, Sodium 143, potassium 3.8, chloride 98, carbon dioxide 33, BUN 43, creatinine 2.0, calcium 8.7, pro BNP 2240, input 150, output one incontinent void. Impression: Acute kidney injury related to diuretic therapy. Stabilized Creatinine. Blood pressure. Remains above target, Volume status. Nutrition. Acceptable. Ambulation. Medication review. No changes.
[2019-05-12] MEDS: TYLENOL PO PRN ×2 (16:33→22:08)
--- NOTE | 2019-05-12 18:41 | PROGRESS NOTE ---
DATE: 05/12/2019 SUBJECTIVE: The patient has no major complaints. She seems pretty well. When I did ask her about dysuria, she did admit to dysuria. She says sometimes, not every time she urinates. She reports some bladder fullness. So, it does sound like she has a symptomatic UTI. It is entirely possible this question could be repeated tomorrow and she would have a different answer, but we are going to kind of see how things look. OBJECTIVE: Blood pressure 144/39, heart rate 77, respiratory rate 15, temperature 97.4 degrees. She is afebrile. Cardiovascular: Regular rate and rhythm. Pulmonary: Bilateral breath sounds. Clear to auscultation. Gastrointestinal: Soft, nontender, nondistended. Bowel sounds are positive. LABORATORY DATA: Her white count is 11, hemoglobin and hematocrit 10 and 34, platelets of 144,000. Creatinine is still at 2, with a BUN of 43, and a proBNP of 2240. PROBLEM LIST: 1. Acute hypoxic respiratory failure due to pulmonary edema. I think that is pretty much resolved. I am going to hold her Lasix just because her creatinine is continuing to rise, and her Aldactone, and we will follow clinically. 2. Acute kidney injury with chronic renal failure stage 3. We will continue to monitor. Nephrology has been consulted. Again, we are going to hold anything nephrotoxic and monitor. 3. Klebsiella urinary tract infection. Dr. Moncada has started antibiotics, which I think is probably related to maybe as a cause of her kidney dysfunction as far as the UTI is causing some issues, so we will follow. I think our plan is to get her home soon, but I am going to transfer her to the regular floor and we will see how she does. 4. Diabetes. Appears well controlled. We will continue to follow closely. cc: Andre Oviedo MD
[2019-05-12] MEDS: DESYREL PO SCH (20:30)
[2019-05-12] MEDS: LEVEMIR SUBQ SCH (20:31)
[2019-05-12] MEDS: MELATONIN PO SCH (20:52)
[2019-05-13] MEDS: HUMALOG SUBQ SCH ×5 (01:53→21:54)
[2019-05-13] MEDS: LINZESS PO SCH ×2 (05:07→07:31)
[2019-05-13] MEDS: PROTONIX PO SCH (05:07)
[2019-05-13] MEDS: ZOSYN 2.25 GM in NS 50 ML IV SCH ×3 (05:07→20:02)
[2019-05-13 06:39] LABS: BASO# 0.04 X1000 (0.0-0.2); BASO% 0.4 % (0.0-0.8); EOS# 0.51 X1000 (0.0-0.7); HEMATOCRIT 32.8 % (37.0-47.0); IMM GRAN# 0.02 X1000 (0.0-0.04); IMM GRAN% 0.2 % (0.0-0.5); LYMPH# 2.66 X1000 (1.2-3.4); LYMPH% 26.3 % (20.5-51.1); MCH 29.1 PG (27-31); MCHC 30.5 g/dL (33-37); MCV 95.3 FL (81-99); MONO# 1.08 X1000 (0.11-0.59); MONO% 10.7 % (1.7-9.3); NEUT# 5.79 X1000 (1.4-6.5); NEUT% 57.4 % (42.2-75.2); PLT 150 X1000 (130-400); RBC 3.44 XMIL (4.2-5.4); RDW 13.8 % (11.5-14.5)
[2019-05-13 07:04] LABS: ALBUMIN 3.4 g/dL (3.5-5.0); CREATININE 2.2 mg/dL (0.5-0.9); PHOSPHORUS 4.3 mg/dL (2.7-4.5); POTASSIUM 3.6 mmol/L (3.5-5.1)
[2019-05-13 07:18] LABS: UR CREAT RANDOM 95.2 mg/dL (11-20)
[2019-05-13] MEDS: TYLENOL PO PRN ×2 (07:29→22:14)
[2019-05-13] MEDS: PERICOLACE PO SCH (09:29)
[2019-05-13] MEDS: MIRALAX PO SCH (09:29)
[2019-05-13] MEDS: APRESOLINE PO SCH ×5 (09:29→21:54)
[2019-05-13] MEDS: SYNTHROID PO SCH (09:29)
[2019-05-13] MEDS: TEARISOL OPH SOLUTION BOTH EYES SCH ×3 (09:29→20:15)
[2019-05-13] MEDS: BUSPAR PO SCH ×3 (09:29→20:02)
[2019-05-13] MEDS: THERA M PLUS PO SCH (09:29)
[2019-05-13] MEDS: COREG PO SCH ×3 (09:29→21:54)
[2019-05-13] MEDS: NORVASC PO SCH ×3 (09:29→21:54)
[2019-05-13] MEDS ORDERED: NS 500 ML IV SCH (17:45)
[2019-05-13] MEDS: DESYREL PO SCH (20:03)
[2019-05-13] MEDS: LEVEMIR SUBQ SCH (20:04)
--- NOTE | 2019-05-13 20:05 | NEPHROLOGY PROGRESS NOTE ---
DATE: 05/13/2019 SUBJECTIVE: She is lying flat in bed. She is complaining of some pain between the right knee and ankle. Pain with movement, but not tender to touch. OBJECTIVE: Blood pressure 148/49, heart rate 77, respirations 19, afebrile.General: No acute distress. Skin: Warm and dry. Neck: Veins are not distended. Heart: Regular. No murmurs or gallops. Lungs: Equal. No crackles. Abdomen: Soft, obese, nontender. Bowel sounds are present. Extremities: No edema, clubbing, or cyanosis. Right lower limb has no edema, no tenderness, full range of motion. IMPRESSION/PLAN: Acute kidney injury overlying stage 3 chronic kidney disease related to urinary tract infection. No obstruction by ultrasound. Labs are modestly worse today, with creatinine of 2.2. Continue current care. cc: Chuy Moncada MD
[2019-05-13] MEDS: MELATONIN PO SCH (20:13)
[2019-05-13] MEDS ORDERED: INSULIN PEN NEEDLES ONE (21:59)
--- NOTE | 2019-05-14 03:48 | PROGRESS NOTE ---
DATE: 05/13/2019 SUBJECTIVE: She looks well. No major complaints. OBJECTIVE: Blood pressure 147/54, heart rate of 61, respiratory rate 16, temperature 98 degrees, 98% on 2 L.Cardiovascular: Regular rate and rhythm. Pulmonary: Bilateral breath sounds, clear to auscultation. GI: Soft, nontender, nondistended. Bowel sounds are positive. Hernandez in place, draining clear urine. LABORATORY DATA: White count is 10, hemoglobin and hematocrit 10 and 32, platelets 150,000. Creatinine of 2.2. Urine sodium was 47. 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 ASSESSMENT AND PLAN: Of course, I am not sure what induced this allergic interstitial nephritis, but we will follow. We will discuss with Dr. Moncada about starting steroids or not. Clinically, though she looks well. We will continue to follow, hoping her kidney function improves and then we can decide on sending her back to the [place] [facility]. cc: Andre Oviedo MD
[2019-05-14] MEDS: ZOSYN 2.25 GM in NS 50 ML IV SCH ×2 (06:31→11:58)
[2019-05-14] MEDS: PROTONIX PO SCH (06:31)
[2019-05-14] MEDS: LINZESS PO SCH (06:31)
[2019-05-14] MEDS: HUMALOG SUBQ SCH ×2 (06:37→11:58)
[2019-05-14 07:19] LABS: SODIUM 143 mmol/L (136-145)
[2019-05-14 07:20] LABS: AGAP 15; ALBUMIN 3.5 g/dL (3.5-5.0); BUN 45 mg/dL (8-22); CALCIUM 8.7 mg/dL (8.8-10.2); CHLORIDE 99 mmol/L (98-107); COSMO 298; GLUCOSE 129 mg/dL (70-104); PHOSPHORUS 4.8 mg/dL (2.7-4.5); POTASSIUM 4.2 mmol/L (3.5-5.1); TCO2 29 mmol/L (25-35)
[2019-05-14] MEDS: SYNTHROID PO SCH (09:47)
[2019-05-14] MEDS: APRESOLINE PO SCH ×2 (09:47→13:55)
[2019-05-14] MEDS: THERA M PLUS PO SCH (09:47)
[2019-05-14] MEDS: COREG PO SCH (09:48)
[2019-05-14] MEDS: NORVASC PO SCH (09:48)
[2019-05-14] MEDS: BUSPAR PO SCH (09:48)
[2019-05-14] MEDS: MIRALAX PO SCH ×2 (09:48→09:49)
[2019-05-14] MEDS: TEARISOL OPH SOLUTION BOTH EYES SCH (09:48)
[2019-05-14] MEDS: PERICOLACE PO SCH (09:48)
--- NOTE | 2019-05-14 10:20 | PROVIDER PROGRESS NOTE ---
Progress Note Subjective: patient lying in bed resting, easily aroused. Denies any uremic complaints. Objective: vitals. 97.2, pulse 60, respiration 16, blood pressure 160/50, 02 sat 98% on 2 L nasal cannula. General: elderly white female lying in bed in no acute distress HEENT: Normocephalic, atraumatic. Trachea midline. Mucous membranes moist. Pupils equal and reactive. Skin: Warm and dry scattered bruises Neck: supple, no jvd observed. Cardiovascular: distant, regular rate or rhythm, no murmur or gallop Respiratory: clear with equal air excursion bilaterally Abdominal:soft, non tender, non distended, active sounds : non inspected Extremities: Trace edema to upper and lower extremities Neurological: alert and oriented to person and place and time. Labs: sodium 143, potassium 4.2, chloride 99, carbon dioxide 29, BUN 45, creatinine 2.0. Intake 480, Output 500. Impression: Acute kidney injury overlying chronic kidney disease stage secondary to diabetic nephropathy. Injury likely related to bacteremia. Creatinine trending up. FeNa >1%. No need for urgent replacement therapy. Blood pressure. Remains above target. Volume status. Euvolemic. Nutrition. Adequate. Ambulation. PT in place. Medication review. Disposition. OK for discharge from our perspective.
[2019-05-14 11:50] VITALS: BP 163/47
--- NOTE | 2019-05-14 13:39 | DISCHARGE SUMMARY ---
ADMISSION DATE: 05/09/2019 DISCHARGE DATE: 05/14/2019 DISCHARGE DIAGNOSES: 1. Acute kidney injury related to diabetic nephropathy and possible bacteremia and urinary tract infection. 2. Hypertension. 3. Type 2 diabetes. 4. Congestive heart failure. CONSULTATIONS: Nephrology, Dr. Moncada. HISTORY AND HOSPITAL COURSE: Briefly, this is an 84-year-old female from [facility] where she had increasing shortness of breath. Her blood pressure was 223/85. Her sugar was over 322. 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 She was placed on hydralazine and BiPAP. She improved though fairly rapidly. She had pulmonary edema, that improved. She was placed on diuretics. Her last echocardiogram showed an EF of 65 to 70 percent with left ventricular hypertrophy. She was placed on losartan and Aldactone, and IV Lasix. Then she did develop some renal insufficiency. Nephrology was consulted. She improved. Her chest x-ray showed improved edema versus pneumonia. Renal ultrasound was obtained which I think was just negative for obstructive uropathy and her kidney function was worse. She was felt to have asymptomatic bacteriuria. That is why she was not given antibiotics. Her initial creatinine was around 1.4 on admission, went up to 2 and it kind of stayed there the whole time. She was taken off nephrotoxic drugs. Dr. Moncada felt compelled to treat the UTI. He thought it was possibly a cause for her kidney infection. She was placed on antibiotics which I think he did Zosyn and then she improved. Her creatinine stabilized to a level around 5. She was breathing comfortably and she was felt stable for discharge on the . Dr. Moncada evaluated her and felt there was no need for urgent replacement therapy and that she could be followed up although she will need a follow-up basic in 1 week. DISCHARGE MEDICATIONS: Hydralazine is 5 four times a day, aspirin 325 daily, Exelon patch daily, Levemir 46 units daily, Linzess 72 mcg daily, losartan 50 daily - I would start that back only when she gets a repeat basic and her kidney function is stable to improved, can resume that, melatonin 2 at bedtime, MiraLAX 17 daily, nitroglycerin, Phenergan, Protonix 40 daily, Reglan 5 daily, Senokot 2 daily, Synthroid 25 daily, multivitamin daily, folic acid daily, Toprol-XL 50 daily, Zofran p.r.n., trazodone 100 at bedtime, BuSpar 7.5 t.i.d., Keflex 500 t.i.d. for 7 days, Lasix was 40 daily which I think we are going to also hold that until it can be resumed next week if her kidney function is better. I will start her on some Norvasc 5 daily just because her blood pressure is still somewhat elevated and we have pretty much stopped all her other blood pressure medications. She has diastolic dysfunction so it is not absolutely essential that she takes an VINNY or ARB. DISCHARGE CONDITION: Stable. DISCHARGE DISPOSITION: She will be going back to the half-way, [facility], where she is a long-term resident. TIME SPENT: This is a 35 minute discharge. cc: MD Chuy Simmons MD Angela L. Clifton
== END 2019-05-14 14:29 | DRG 291 ==
LOC: SUPCPDRO → ED 01:20 → SUATTDRO 07:23 → EDIPHOLD 07:23 → 2N 14:32 → 4N 05-12 18:10
PROVIDERS: ATTEND Internal Medicine